=== PATIENT | female | born 1990 | race Caucasian/White ===

== ENCOUNTER 2019-01-19 16:33 | Observation (INO) | payer BC ==
[2019-01-19] MEDS ORDERED: Sodium Chloride 0.9% 1,000 ML IV ONE (17:11)
[2019-01-19] MEDS: cefTRIAXone 1 GM Vial IVPUSH SCH (17:40)
[2019-01-19] MEDS: Sodium Chloride 0.9% 1,000 ML IV SCH (18:45)
[2019-01-19] MEDS: Acetaminophen 325 MG Tab PO PRN ×2 (18:48→23:03)
[2019-01-19] MEDS: Ketorolac 30 MG/ML SDV IVPUSH PRN (19:12)
[2019-01-20] MEDS: Ondansetron 4 MG/2 ML SDV IVPUSH PRN ×2 (00:17→12:32)
[2019-01-20] MEDS: Sodium Chloride 0.9% 1,000 ML IV SCH ×3 (02:29→17:48)
[2019-01-20] MEDS: Ketorolac 30 MG/ML SDV IVPUSH PRN ×2 (02:32→12:36)
[2019-01-20] MEDS: Acetaminophen 325 MG Tab PO PRN ×3 (06:49→20:40)
[2019-01-20 08:00] LABS: ANION GAP 15.2 mmol/L (5-15); CHLORIDE,CL 106 mmol/L (98-115); SODIUM,NA 139 mmol/L (136-145)
[2019-01-20] MEDS ORDERED: Non-Formulary Medication 1 Each (Lisdexamfetamine Dimesylate [Vyvanse] 40 MG) PO SCH (09:00)
--- NOTE | 2019-01-20 11:17 | PCM.PN ---
- General Info Date of Service: 01/20/19 Functional Status: Reports: Tolerating Diet - Review of Systems General: Reports: Weakness, Fatigue, Malaise, Chills HEENT: Reports: Headaches (Patient reports frontal head pain. No sensitivity to light or sound. No associated nausea or vomiting. ) Pulmonary: Reports: No Symptoms Cardiovascular: Reports: No Symptoms Gastrointestinal: Reports: Nausea (intermittent). Denies: Vomiting Genitourinary: Reports: Dysuria, Frequency, Burning, Urgency, Flank Pain. Denies: Pain, Hematuria, Retention Musculoskeletal: Reports: No Symptoms Skin: Reports: No Symptoms Neurological: Reports: No Symptoms Psychiatric: Reports: No Symptoms - Patient Data Vitals - Most Recent: Last Vital Signs Temp 99.4 F 01/20/19 06:51 Pulse 100 01/20/19 06:51 Resp 16 01/20/19 06:51 BP 94/61 01/20/19 06:51 Pulse Ox 97 01/20/19 06:51 Weight - Most Recent: 139 lb 6.4 oz I&O - Last 24 Hours: Intake & Output 01/19/19 01/20/19 01/20/19 22:59 06:59 14:59 Intake Total 400 2510 Output Total 700 600 Balance -300 1910 Lab Results Last 24 Hours: Laboratory Results - last 24 hr 01/20/19 01/20/19 Range/Units 07:30 07:30 WBC 11.83 H (5.00-10.00) 10^3/uL RBC 3.57 L (3.80-5.50) 10^6/uL Hgb 11.8 L (12.0-16.0) g/dL Hct 33.2 L (37.0-47.0) % MCV 93.0 H D (82.0-92.0) fL MCH 33.1 H (27.0-31.0) pg MCHC 35.5 (32.0-36.0) g/dL RDW 11.8 (11.5-14.5) % Plt Count 230 (150-400) 10^3/uL MPV 8.2 (7.4-10.4) fL Immature Gran % (Auto) 0.2 (0.0-5.0) % Neut % (Auto) 77.9 H (50.0-70.0) % Lymph % (Auto) 8.8 L (20.0-40.0) % [place] % (Auto) 12.3 H (2.0-8.0) % Eos % (Auto) 0.6 L (1.0-3.0) % Baso % (Auto) 0.2 (0.0-1.0) % Immature Gran # (Auto) 0.02 (0.00-0.50) 10^3/uL Neut # (Auto) 9.23 H (2.50-7.00) 10^3/uL Lymph # (Auto) 1.04 (1.00-4.00) 10^3/uL [place] # (Auto) 1.45 H (0.10-0.80) 10^3/uL Eos # (Auto) 0.07 L (0.10-0.30) 10^3/uL Baso # (Auto) 0.02 (0.00-0.10) 10^3/uL Sodium 139 (136-145) mmol/L Potassium 4.0 (3.3-5.3) mmol/L Chloride 106 (98-115) mmol/L Carbon Dioxide 21.8 (21.0-32.0) mmol/L Anion Gap 15.2 H (5-15) mmol/L BUN 9 (6-25) mg/dL Creatinine 0.50 L (0.51-1.17) mg/dL Est Cr Clr Drug Dosing 164.35 mL/min Estimated GFR (MDRD) > 60 mL/min Glucose 101 H (75 - 99) mg/dL Calcium 8.4 L (8.7-10.3) mg/dL [place] Results Last 24 Hours: Microbiology 01/19/19 18:20 Anaerobic Blood Culture - Final Blood - Venous Med Orders - Current: Current Medications Acetaminophen (Tylenol) 650 mg PO Q4H PRN PRN Reason: Pain/Fever Last Admin: 01/20/19 06:49 Dose: 650 mg Ceftriaxone Sodium (Rocephin) 1 gm IVPUSH DAILY@1800 BRAN Last Admin: 01/19/19 17:40 Dose: 1 gm Sodium Chloride (Normal Saline) 1,000 mls @ 125 mls/hr IV ASDIRECTED BRAN Last Admin: 01/20/19 02:29 Dose: 125 mls/hr Ketorolac Tromethamine (Toradol) 30 mg IVPUSH Q6H PRN PRN Reason: Pain Stop: 01/24/19 17:16 Last Admin: 01/20/19 02:32 Dose: 30 mg Non-Formulary Medication (Lisdexamfetamine Dimesylate [Vyvanse]) 40 mg PO DAILY BRAN Ondansetron HCl (Zofran) 4 mg IVPUSH Q6H PRN PRN Reason: Nausea/Vomiting Last Admin: 01/20/19 00:17 Dose: 4 mg Discontinued Medications Sodium Chloride (Normal Saline) 1,000 mls @ 999 mls/hr IV BOLUS ONE Stop: 01/19/19 18:11 Last Admin: 01/19/19 17:39 Dose: 999 mls/hr - Exam General: Alert, Oriented HEENT: Pupils Equal, Pupils Reactive, EOMI, Other (mucus membrane and lips dry but improving). No: Mucous Membr. Moist/[place] Neck: Supple Lungs: Clear to Auscultation, Normal Respiratory Effort Cardiovascular: Regular Rate, Regular Rhythm GI/Abdominal Exam: Normal Bowel Sounds, Soft, Other (marked left flank pain. abdominal pain with palpation has improved. ) (Female) Exam: Deferred Back Exam: CVA Tenderness (L) Extremities: Normal Inspection, Normal Range of Motion, Non-Tender, No Pedal Edema, Normal Capillary Refill Skin: Warm, Dry, Intact Neurological: Normal Gait, Normal Speech, Normal Tone, Strength Equal Bilateral , Reflexes Equal Bilateral, Sensation Intact, Cranial Nerves Intact Psy/Mental Status: Alert, Normal Affect, Normal Mood - Problem List & Annotations (1) Pyelonephritis SNOMED Code(s): 38187605 Code(s): N12 - TUBULO-INTERSTITIAL NEPHRITIS, NOT SPCF ACUTE OR CHRONIC Status: Acute (2) Dehydration SNOMED Code(s): 18194994 Code(s): E86.0 - DEHYDRATION Status: Acute - Problem List Review Problem List Initiated/Reviewed/Updated: Yes - My Orders Last 24 Hours: My Active Orders 01/19/19 17:15 Ketorolac [Toradol] 30 mg IVPUSH Q6H PRN Ondansetron [Zofran] 4 mg IVPUSH Q6H PRN 01/19/19 17:30 Sodium Chloride 0.9% [Normal Saline] 1,000 ml IV ASDIRECTED 01/19/19 17:45 CULTURE BLOOD [BC] Routine 01/19/19 18:00 cefTRIAXone [Rocephin] 1 gm IVPUSH DAILY@1800 01/19/19 18:20 CULTURE BLOOD [BC] Routine 01/19/19 18:34 Acetaminophen [Tylenol] 650 mg PO Q4H PRN 01/19/19 19:33 Resuscitation Status Routine 01/20/19 09:00 Lisdexamfetamine Dimesylate [Vyvanse] 40 mg PO DAILY 01/20/19 Breakfast Regular Diet [DIET] - Assessment Assessment:: HPI summary: This is a 28 year old female who was admitted to the hospital 01/20/19 from the [facility] in [place] by myself for acute pyelonephritis and dehydration. Patient had a notable history of urgency, frequency, and discomfort (pinching pain) with urination x3 days followed by the onset of fevers of up to 103, nausea, vomiting, severe left flank pain, and abdominal pain. She reported a decreased appetite with decreased PO fluid intake. Patient notes a history of renal stones during nearly 10 years ago which passed without intervention. Pertinent clinical work-up: - CBC with elevated WBC at 14.8 with a left shift with seg neutrophil count of 12.0 - CMP done with mild hyponatremia. Normal renal function. - Lipase normal - Urinalysis showing Large ketones, moderate blood, protein, positive nitrites, Large leukocytes. Significant pyuria WBC>50, RBC 11-50, Bacteria few. - Urine culture done and pending - Urine hcg negative. Hospitalization course: Patient admitted observation status. BC x2 done and pending. Patient was febrile 101.8 on admit and has been afebrile since, though receiving tylenol for pain/fever. Reports mild improvement in symptoms today. Does complain of a frontal headache today without associated nausea, vomiting, sensitivity to light or sound, or neurological deficit. Receiving IV Toradol PRN. Reports good pain control. Received 4mg IV Zofran during the night. Denies any further nausea. No vomiting. Hospitalization problems #Acute pyelonephritis- CBC done today and improved WBC from 14.8 to 11.83. mild left shift. No indicator of urinary tract obstruction: Renal function normal. Good urinary output. Improving flank pain and associated symptoms. No risk factors for MDR organism. Will continue Rocephin 1gm IV daily. urine culture Pending. Continue IV Toradol PRN for pain and Zofran for nausea. Recheck labs in AM. #Dehydration- Improving. Clinical evidence of mild volume depletion. Continue IV rehydration. Encourage PO intake. Chronic stable conditions: #ADHD- on Vyvanse Hospitalization details: # FEN: NS @ 125ml/hr. Monitor urinary output. Encourage PO fluid intake as tolerated. Regular diet. # Code status: Full # Disposition: Continue observation status. Close patient monitoring with low threshold for CT imaging if change in patient status including new or worsening of symptoms, lack of therapeutic response, and/or change in renal function or urinary output. Re-evaluate on rounds tomorrow.
[2019-01-20] MEDS ORDERED: SUMAtriptan 25 MG Tab PO SCH (15:45)
[2019-01-20] MEDS: cefTRIAXone 1 GM Vial IVPUSH SCH (17:27)
[2019-01-21] MEDS: Ketorolac 30 MG/ML SDV IVPUSH PRN (01:45)
[2019-01-21] MEDS: Acetaminophen 325 MG Tab PO PRN ×2 (01:50→08:45)
[2019-01-21 07:41] LABS: ANION GAP 12.4 mmol/L (5-15); CHLORIDE,CL 106 mmol/L (98-115); SODIUM,NA 140 mmol/L (136-145)
[2019-01-21] MEDS ORDERED: Ketorolac 10 MG Tab PO ONE (09:56)
[2019-01-21] MEDS ORDERED: Ondansetron 4 MG Tab.DIS PO ONE (09:58)
--- NOTE | 2019-01-21 10:55 | CT ---
[id number] CT/CT Abdomen Pelvis WO IV Exam: CT Abdomen Pelvis WO IV Clinical Data: LEFT FLANK PAIN HISTORY OF KIDNEY STONES COMPARISON: NO PREVIOUS SIMILAR EXAM IS AVAILABLE FINDINGS: There is scarring at the lung bases There is moderate left-sided hydronephrosis There is bilateral nephrolithiasis. An obstructing calculus is not seen There are some limitations of the exam without IV contrast The liver and spleen, aorta, adrenals, pancreas, gallbladder show no acute abnormalities The pelvis shows no mass or adenopathy It appears that the appendix has been removed IMPRESSION: BILATERAL NEPHROLITHIASIS APPEARANCE OF MODERATE LEFT-SIDED HYDRONEPHROSIS AN EXTRARENAL PELVIS ALSO COULD RESULT IN THIS APPEARANCE CHANGE IN CALIBER AT LEFT UPJ CONSIDER FOLLOW-UP CT WITH IV CONTRAST AND UROLOGY CONSULTATION Rosalino Vallecillo MD 01/21/19 [id number] Thank you for allowing us to participate in the care of your patient.
[2019-01-21] MEDS ORDERED: Iopamidol 755 Mg/ML 100 ML Bottle IV ONE (11:27)
[2019-01-21] MEDS ORDERED: Sodium Chloride 0.9% 50 ML IV SCH (11:30)
--- NOTE | 2019-01-21 12:46 | CT ---
[id number] CT/CT Abdomen Pelvis W IV EXAM: CT Abdomen Pelvis W IV CLINICAL DATA: LEFT FLANK PAIN KIDNEY STONES COMPARISON: CORRELATION IS MADE WITH THE EARLIER EXAM TODAY FINDINGS: There is a parapelvic cyst or extrarenal pelvis on the left with no definite hydronephrosis There appears to be left-sided UPJ narrowing There is left-sided nephrolithiasis There is a small amount of free fluid in the pelvis likely physiologic There is fullness in the adnexal region bilaterally likely again physiologic The appendix is not well seen It appears that the appendix has been removed The liver and spleen, kidneys, adrenals, pancreas, aorta, and gallbladder otherwise are unremarkable There is small right renal cysts IMPRESSION: BILATERAL PARAPELVIC CYSTS MIMICKING HYDRONEPHROSIS NEPHROLITHIASIS CONSIDER UROLOGY CONSULTATION NO DEFINITE HYDRONEPHROSIS Rosalino Vallecillo MD 01/21/19 [id number] Thank you for allowing us to participate in the care of your patient.
[2019-01-21 15:15] VITALS: BP 100/71; PULSE 85
--- NOTE | 2019-01-21 15:19 | PCM.DCSUM1 ---
Discharge Summary - Hospital Course HPI Initial Comments: Date of admission: 01/19/19 Date of discharge: 01/21/19 Admission diagnoses: Pyelonephritis, Dehydration Discharge diagnoses: Pyelonephritis, Nonobstructing nephrolithiasis, Dehydration Consultations: Urology Hospital course: The patient is a 28 year old female who was admitted to the hospital 01/20/19 from the [facility] in [place] by myself for acute pyelonephritis and dehydration. Patient had a notable history of urgency, frequency, and discomfort (pinching pain) with urination x3 days followed by the onset of fevers of up to 103, nausea, vomiting, severe left flank pain, and abdominal pain. She reported a decreased appetite with decreased PO fluid intake. Initial clinic work-up with a noted elevated WBC at 14.8 with a left shift. UA positive with significant pyuria and noted hematuria. Urine culture showing >100 ,000 E. coli. sensitivity pending. Patient was admitted with acute pyelonephritis and dehydration. Overall hospitalization uneventful. Blood cultures done on arrival showing no growth at discharge. WBC normalized on discharge at 8.9 with normal seg neutrophils. Renal function normal. Patient maintained good urinary output and oral intake. Flank pain improving. Fevers, nausea, and vomiting improved. Patient receive IV fluid replacement, 1g IV Rocephin Q24h. CT of the abdomen and pelvis done prior to discharge due to history of renal stones in the left kidney noted on CT imaging from 2017. Repeat imaging notes 3-4 nonobstructing stones approximately 7mm in size. No hydronephrosis. Consult placed with urology and stones likely persistent stones as noted on previous imaging. Recommend outpatient urology follow-up. She was continued on other medications for chronic medical conditions. Discharge instructions: -Outpatient referral to urology [place] for non-obstructive, persistent kidney stones. Referral placed through [employer]. - Follow-up Tuesday with Joie STARKEY) at the [facility] for recheck. - Start Oral antibiotic tomorrow. Sensitivities returning in the AM. - Increase oral fluid (water) intake. - May take oral Toradol every 6 hours as needed for pain. - May take oral Zofran every 6 hours as needed for nausea. - Hold ibuprofen while on Toradol. May use Tylenol as needed. Follow-up if any increased pain, nausea/vomiting, fevers, worsening urinary symptoms, or decreased urinary output - follow-up if any other concerns arise. - Discharge Data Discharge Date: 01/21/19 Discharge Disposition: Home, Self-Care 01 Condition: Good - Referral to Home Health Primary Care Physician: Joie Lezama PA-C - Discharge Diagnosis/Problem(s) (1) Pyelonephritis SNOMED Code(s): 95932918 ICD Code: N12 - TUBULO-INTERSTITIAL NEPHRITIS, NOT SPCF ACUTE OR CHRONIC Status: Acute (2) Dehydration SNOMED Code(s): 19394612 ICD Code: E86.0 - DEHYDRATION Status: Acute - Patient Instructions Diet: Regular Diet as Tolerated, Drink 8-10+ Glasses/Day, No Alcoholic Beverages Driving: May Drive Today Showering/Bathing: May Shower Notify Provider of: Fever, Increased Pain, Nausea and/or Vomiting Other/Special Instructions: Notify provider of any return of fever, nausea/ vomiting, increased flank (back pain), or return/worsening of urinary symptoms. - Discharge Plan *PRESCRIPTION DRUG MONITORING PROGRAM REVIEWED*: Not Applicable *COPY OF PRESCRIPTION DRUG MONITORING REPORT IN PATIENT AL: Not Applicable Home Medications: Home Meds Ibuprofen [Motrin Ib] 200 mg PO Q6HR PRN 01/19/19 [History] Lisdexamfetamine Dimesylate [Vyvanse] 40 mg PO DAILY 01/19/19 [History] Oxygen Therapy Mode: Room Air Patient Handouts: Kidney Stones - Discharge Summary/Plan Comment DC Time >30 min.: Yes - General Info Date of Service: 01/21/19 Functional Status: Reports: Pain Controlled, Tolerating Diet, Urinating, New Symptoms - Review of Systems General: Denies: Fever, Fatigue, Chills, Appetite HEENT: Reports: No Symptoms Pulmonary: Reports: No Symptoms Cardiovascular: Reports: No Symptoms Gastrointestinal: Reports: Abdominal Pain. Denies: Constipation, Decreased Appetite, Diarrhea, Nausea, Vomiting Genitourinary: Reports: Frequency, Flank Pain (improved left flank pain). Denies: Dysuria, Burning, Pain, Urgency, Hematuria, Retention Musculoskeletal: Reports: No Symptoms Skin: Reports: No Symptoms Neurological: Reports: No Symptoms Psychiatric: Reports: No Symptoms - Patient Data Vitals - Most Recent: Last Vital Signs Temp 98.1 F 01/21/19 11:00 Pulse 80 01/21/19 11:00 Resp 16 01/21/19 11:00 BP 95/65 01/21/19 11:00 Pulse Ox 97 01/21/19 11:00 Orthostatic Blood Pressure [ 105/67 Standing] Orthostatic Blood Pressure [ 106/64 Sitting] Orthostatic Blood Pressure [ 98/64 Supine] Weight - Most Recent: 139 lb 6.4 oz I&O - Last 24 hours: Intake & Output 01/21/19 01/21/19 01/21/19 06:59 14:59 22:59 Intake Total 300 400 Output Total 900 1200 Balance -600 -800 Lab Results - Last 24 hrs: Laboratory Results - last 24 hr 01/21/19 01/21/19 Range/Units 07:11 07:11 WBC 8.19 (5.00-10.00) 10^3/uL RBC 3.45 L (3.80-5.50) 10^6/uL Hgb 11.3 L (12.0-16.0) g/dL Hct 32.2 L (37.0-47.0) % MCV 93.3 H (82.0-92.0) fL MCH 32.8 H (27.0-31.0) pg MCHC 35.1 (32.0-36.0) g/dL RDW 11.8 (11.5-14.5) % Plt Count 222 (150-400) 10^3/uL MPV 8.4 (7.4-10.4) fL Immature Gran % (Auto) 0.1 (0.0-5.0) % Neut % (Auto) 61.2 (50.0-70.0) % Lymph % (Auto) 19.8 L (20.0-40.0) % [place] % (Auto) 15.9 H (2.0-8.0) % Eos % (Auto) 2.6 (1.0-3.0) % Baso % (Auto) 0.4 (0.0-1.0) % Immature Gran # (Auto) 0.01 (0.00-0.50) 10^3/uL Neut # (Auto) 5.02 (2.50-7.00) 10^3/uL Lymph # (Auto) 1.62 (1.00-4.00) 10^3/uL [place] # (Auto) 1.30 H (0.10-0.80) 10^3/uL Eos # (Auto) 0.21 (0.10-0.30) 10^3/uL Baso # (Auto) 0.03 (0.00-0.10) 10^3/uL Sodium 140 (136-145) mmol/L Potassium 3.9 (3.3-5.3) mmol/L Chloride 106 (98-115) mmol/L Carbon Dioxide 25.5 (21.0-32.0) mmol/L Anion Gap 12.4 (5-15) mmol/L BUN 6 (6-25) mg/dL Creatinine 0.58 (0.51-1.17) mg/dL Est Cr Clr Drug Dosing 141.68 mL/min Estimated GFR (MDRD) > 60 mL/min Glucose 91 (75 - 99) mg/dL Calcium 8.6 L (8.7-10.3) mg/dL Total Bilirubin 0.4 (0.2-1.0) mg/dL AST 28 (15-37) U/L ALT 50 (12-78) U/L Alkaline Phosphatase 73 (46-116) IU/L Total Protein 6.2 L (6.4-8.2) g/dL Albumin 2.92 L (3.00-4.80) g/dL [place] Results - Last 24 hrs: Microbiology 01/19/19 18:20 Aerobic Blood Culture - Preliminary Blood - Venous NO GROWTH AFTER 1 DAY Anaerobic Blood Culture - Final 01/19/19 17:45 Aerobic Blood Culture - Preliminary Blood - Venous NO GROWTH AFTER 1 DAY Anaerobic Blood Culture - Preliminary NO GROWTH AFTER 1 DAY Med Orders - Current: Current Medications Acetaminophen (Tylenol) 650 mg PO Q4H PRN PRN Reason: Pain/Fever Last Admin: 01/21/19 08:45 Dose: 650 mg Ceftriaxone Sodium (Rocephin) 1 gm IVPUSH DAILY@1800 BRAN Last Admin: 01/20/19 17:27 Dose: 1 gm Sodium Chloride (Normal Saline) 50 mls @ 200 mls/min IV ASDIRECTED BRAN Last Admin: 01/21/19 12:14 Dose: 200 mls/min Ketorolac Tromethamine (Toradol) 30 mg IVPUSH Q6H PRN PRN Reason: Pain Stop: 01/24/19 17:16 Last Admin: 01/21/19 01:45 Dose: 30 mg Non-Formulary Medication (Lisdexamfetamine Dimesylate [Vyvanse]) 40 mg PO DAILY [facility] Ondansetron HCl (Zofran) 4 mg IVPUSH Q6H PRN PRN Reason: Nausea/Vomiting Last Admin: 01/20/19 12:32 Dose: 4 mg Sumatriptan Succinate (Imitrex) 50 mg PO ONETIME [facility] Last Admin: 01/20/19 15:46 Dose: 50 mg Discontinued Medications Sodium Chloride (Normal Saline) 1,000 mls @ 999 mls/hr IV BOLUS ONE Stop: 01/19/19 18:11 Last Admin: 01/19/19 17:39 Dose: 999 mls/hr Sodium Chloride (Normal Saline) 1,000 mls @ 125 mls/hr IV ASDIRECTED [facility] Last Admin: 01/20/19 17:48 Dose: 125 mls/hr Iopamidol (Isovue-370 (76%)) 100 ml IV ONETIME ONE Stop: 01/21/19 11:28 Last Admin: 01/21/19 12:14 Dose: 75 ml Ketorolac Tromethamine (Toradol) 40 mg PO ONETIME ONE Stop: 01/21/19 09:57 Ondansetron HCl (Zofran Odt) 16 mg PO ONETIME ONE Stop: 01/21/19 09:59 - Exam General: Reports: Alert, Oriented Neck: Reports: Supple Lungs: Reports: Clear to Auscultation, Normal Respiratory Effort Cardiovascular: Reports: Regular Rate, Regular Rhythm GI/Abdominal Exam: Normal Bowel Sounds, Soft, No Organomegaly, No Distention, Tender (Mild abdominal pain with palpation of LLQ) (Female) Exam: Deferred Back Exam: Reports: CVA Tenderness (L) (mild left flank pain, significantly improved.). Denies: CVA Tenderness (R) Skin: Reports: Warm, Dry, Intact Neurological: Reports: No New Focal Deficit Psy/Mental Status: Reports: Alert, Normal Affect, Normal Mood
[2019-01-21] MEDS ORDERED: Fluconazole 100 MG Tab PO ONE (16:03)
[2019-01-21] MEDS: cefTRIAXone 1 GM Vial IVPUSH SCH (16:16)
== END 2019-01-21 16:40 | disposition home or self-care (01) ==
LOC: KA.MS 16:33
PROVIDERS: ADMIT Nurse Practitioner Family; ATTEND Nurse Practitioner Family
DX: N10 Acute pyelonephritis (principal); N20.0 Calculus of kidney; E86.0 Dehydration; F90.9 Attention-deficit hyperactivity disorder, unspecified type; Z79.899 Other long term (current) drug therapy
CPT/HCPCS: 36415; 74176; 74177; 80048; 80053; 85025; 87040; 96361; 96374; 96375; 96376; A9270-GY; G0378; G0379; J0696; J1885; J2405; J7030; J7050; Q9967

== ENCOUNTER 2019-02-05 12:17 | Inpatient (IN) | payer BC ==
[2019-02-05] MEDS ORDERED: Lactated Ringers 1,000 ML IV ONE (14:08)
[2019-02-05] MEDS ORDERED: Lactated Ringers 1,000 ML IV SCH (15:30)
[2019-02-05 16:13] VITALS: PULSE 110
--- NOTE | 2019-02-05 17:08 | CT ---
[id number] CT/CT Chest W IV Exam: CT Chest W IV Clinical Data: ELEVATED D-DIMER COMPARISON: NO PREVIOUS SIMILAR EXAM IS AVAILABLE FINDINGS: There is significant right middle lobe collapse. There is a significant infiltrate involving the anterior and medial basal segments of the right lower lobe There is an infiltrate involving the superior segment of the right lower lobe. There are no pulmonary emboli. The right middle lobe bronchus is occluded. Consider bronchoscopy. There is no obvious mediastinal mass or adenopathy identified separate from the confluent pulmonary parenchymal infiltrates The left lung is clear IMPRESSION: EXTENSIVE RIGHT-SIDED INFILTRATES INVOLVING PRIMARILY THE RIGHT MIDDLE LOBE AND RIGHT LOWER LOBE VOLUME LOSS INVOLVING MIDDLE LOBE CONSIDER BRONCHOSCOPY NO PULMONARY EMBOLI Rosalino Vallecillo MD 02/05/19 [id number] Thank you for allowing us to participate in the care of your patient.
[2019-02-05 17:34] VITALS: BP 112/78
[2019-02-05] MEDS ORDERED: Piperacillin/Tazobactam 4.5 GM in Sodium Chloride 0.9% 100 ML IV SCH (18:00)
[2019-02-05] MEDS ORDERED: Azithromycin 500 MG in Sodium Chloride 0.9% 250 ML IV ONE (18:30)
[2019-02-06] MEDS ORDERED: Non-Formulary Medication 1 Each (Lisdexamfetamine Dimesylate [Vyvanse] 40 MG) PO SCH (09:00)
== END 2019-02-05 19:15 | DRG 139 ==
LOC: KA.MS 13:34 → OBSVTOIN 13:34
PROVIDERS: ADMIT Nurse Practitioner Family; ATTEND Family Medicine
DX: J18.9 Pneumonia, unspecified organism (principal); D64.9 Anemia, unspecified; E28.2 Polycystic ovarian syndrome; Z79.899 Other long term (current) drug therapy; Z87.442 Personal history of urinary calculi; Z90.49 Acquired absence of other specified parts of digestive tract
CPT/HCPCS: 36415; 71260; 81025; 84145; 87040; 87070; 87205; 87899; J0456; J2543; J7050; J7120

== ENCOUNTER 2019-09-08 01:52 | Emergency (ER) | payer BC ==
[2019-09-08] MEDS ORDERED: Sodium Chloride 0.9% 10 ML Syringe FLUSH PRN (02:31)
[2019-09-08] MEDS ORDERED: HYDROmorphone 1 MG/ML Syringe IVPUSH ONE (02:31)
[2019-09-08] MEDS ORDERED: Ondansetron 4 MG/2 ML SDV IVPUSH ONE (02:31)
[2019-09-08 02:40] VITALS: BP 102/71; PULSE 86
--- NOTE | 2019-09-08 02:51 | EDM.PDOC ---
ED HPI GENERAL MEDICAL PROBLEM - General Chief Complaint: General Stated Complaint: chest pain Time Seen by Provider: 09/08/19 02:29 Source of Information: Reports: Patient History Limitations: Reports: No Limitations - History of Present Illness INITIAL COMMENTS - FREE TEXT/NARRATIVE: Patient is a 28-year-old female who presents to the emergency department this morning via private vehicle with a complaint of chest pain. Patient states approximately 1700 yesterday, she developed upper abdominal and lower chest pain caused her to vomit. He did have mild relief after vomiting. Pain is described as constant, and feels like a balloon is blowing up in her chest and lower abdomen. 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 Patient had similar symptoms January 2019. She was found to have pneumonia at that time and was transferred to [facility]. Patient states since then she's been asymptomatic. Patient denies drug use, excessive alcohol abuse, out of area travel, blood in vomitus, bowel changes, suspicion for , or any trauma. Onset: Gradual Duration: Hour(s): Location: Reports: Chest, Abdomen Quality: Reports: Pressure Severity: Moderate Improves with: Reports: None Worsens with: Reports: Breathing Associated Symptoms: Reports: Chest Pain, Nausea/Vomiting. Denies: Cough, Feve r/Chills Treatments INJECTION SPECIALIST: Reports: NSAIDS Epigastric Pain Score (Numeric/FACES): 10 - Related Data Allergies Allergy/AdvReac Type Severity Reaction Status Date / Time No Known Allergies Allergy Verified 09/08/19 02:51 Home Meds: Home Meds Ibuprofen [Motrin Ib] 200 mg PO Q6HR PRN 01/19/19 [History] Lisdexamfetamine Dimesylate [Vyvanse] 40 mg PO DAILY 01/19/19 [History] Past Medical History HEENT History: Reports: Allergic Rhinitis Cardiovascular History: Reports: None Respiratory History: Reports: None Gastrointestinal History: Reports: Chronic Constipation Genitourinary History: Reports: Renal Calculus, Other (See Below) Other Genitourinary History: Right-sided Sided urolithiasis in 2009 with spontaneous passage ACUTE DIALYSIS NURSE History: Reports: Musculoskeletal History: Reports: None Neurological History: Reports: None Psychiatric History: Reports: ADD, ADHD Endocrine/Metabolic History: Reports: None Hematologic History: Reports: Anemia, Iron Deficiency Immunologic History: Reports: None Oncologic (Cancer) History: Reports: None Dermatologic History: Reports: None - Infectious Disease History Infectious Disease History: Reports: None - Past Surgical History Head Surgeries/Procedures: Reports: None HEENT Surgical History: Reports: Oral Surgery, Other (See Below) Other HEENT Surgeries/Procedures: [place] teeth extraction 4 in 2011 Cardiovascular Surgical History: Reports: None Respiratory Surgical History: Reports: None GI Surgical History: Reports: Appendectomy, Hernia, Abdominal, Other (See Below) Other GI Surgeries/Procedures: umbilical hernia repair Female Surgical History: Reports: Other (See Below) Other Female Surgeries/Procedures: IUD placement in about 2009 with periforation - no curren IUD as of 2018 Endocrine Surgical History: Reports: None Neurological Surgical History: Reports: None Musculoskeletal Surgical History: Reports: None Oncologic Surgical History: Reports: None Dermatological Surgical History: Reports: Plastic Surgical Reconstruction/Repair, Other (See Below) - Past Imaging History Past Imaging History: Reports: Ultrasound (Pelvic ultrasound in about 2010) Social & Family History - Family History HEENT: Reports: None Cardiac: Reports: None Respiratory: Reports: None GI: Reports: None : Reports: None OBGYN: Reports: None Musculoskeletal: Reports: None Neurological: Reports: None Psychiatric: Reports: Anxiety, Depression, Other (See Below) Other Psychiatric Family History: Mother with anxiety depression disorder Hematologic: Reports: Anemia, Other (See Below) Other Hematologic Family History: Mother with iron deficiency anemia Immunologic: Reports: None Dermatologic: Reports: Eczema, Seborrheic Dermatitis Other Dermatologic Family History: Brother with eczema and seborrheic dermatitis Oncologic: Reports: None - Caffeine Use Caffeine Use: Reports: Coffee, Energy Drinks, Soda Other Caffeine Use: coffee 2 cups a day - Living Situation & Occupation Living situation: Reports: (2012, 2 children), with Family ( and 2 children) 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 Constitutional: Reports: No Symptoms HEENT: Reports: No Symptoms Respiratory: Reports: Pleuritic Chest Pain Cardiovascular: Reports: Chest Pain Endocrine: Reports: No Symptoms GI/Abdominal: Reports: Abdominal Pain, Nausea, Vomiting : Reports: No Symptoms Musculoskeletal: Reports: No Symptoms Skin: Reports: No Symptoms Neurological: Reports: No Symptoms Psychiatric: Reports: No Symptoms Hematologic/Lymphatic: Reports: No Symptoms Immunologic: Reports: No Symptoms ED EXAM, GENERAL - Physical Exam Exam: See Below Exam Limited By: No Limitations General Appearance: Alert, WD/WN, Moderate Distress Nose: Normal Inspection, Normal Mucosa, No Blood Throat/Mouth: Normal Inspection, Normal Oropharynx, No Airway Compromise Head: Atraumatic, Normocephalic Neck: Normal Inspection, Supple Respiratory/Chest: No Respiratory Distress, Lungs Clear, Normal Breath Sounds, No Accessory Muscle Use Cardiovascular: Regular Rate, Rhythm, No Murmur GI/Abdominal: Normal Bowel Sounds, Soft, No Organomegaly, No Distention, No Abnormal Bruit, No Mass, Tender (Epigastric and right upper quadrant). No: Non- Tender, Distended, Guarding, Rigid, Rebound, Hepatomegaly, Splenomegaly Back Exam: Normal Inspection. No: CVA Tenderness (L), CVA Tenderness (R) Extremities: Normal Inspection, No Pedal Edema Neurological: Alert, Oriented, Normal Cognition Psychiatric: Normal Affect, Normal Mood Skin Exam: Warm, Dry, Intact, Normal Color, No Rash Lymphatic: No Adenopathy EKG INTERPRETATION EKG Date: 09/08/19 Time: 03:30 Rhythm: NSR Rate (Beats/Min): 70 [place]: Normal P-Wave: Present QRS: RBBB ST-T: Normal QT: Normal Comparison: NA - No Prior EKG Course - Vital Signs Last Recorded V/S: Last Vital Signs Temp 96.9 F 09/08/19 02:00 Pulse 86 09/08/19 02:00 Resp 20 09/08/19 02:00 BP 102/71 09/08/19 02:00 Pulse Ox 97 09/08/19 02:00 - Orders/Labs/Meds Orders: Active Orders 24 hr Category Date Time Status Peripheral IV Care [RC] . DIRECTED Care 09/08/19 02:32 Ordered Chest 1V Frontal [CR] Stat Exams 09/08/19 02:29 Ordered Sodium Chloride 0.9% [Saline Flush] Med 09/08/19 02:31 Ordered 10 ml FLUSH Q8HR PRN Peripheral IV Insertion Adult [OM.PC] Routine Oth 09/08/19 02:31 Ordered Medication Orders Sodium Chloride (Saline Flush) 10 ml FLUSH Q8HR PRN PRN Reason: keep vein open Labs: Laboratory Tests 09/08/19 09/08/19 09/08/19 Range/Units 02:30 02:30 02:30 WBC 11.38 H (5.00-10.00) 10^3/uL RBC 4.61 (3.80-5.50) 10^6/uL Hgb 14.3 D (12.0-16.0) g/dL Hct 41.7 (37.0-47.0) % MCV 90.5 (82.0-92.0) fL MCH 31.0 (27.0-31.0) pg MCHC 34.3 (32.0-36.0) g/dL RDW 11.6 (11.5-14.5) % Plt Count 409 H D (150-400) 10^3/uL MPV 8.4 (7.4-10.4) fL Immature Gran % (Auto) 0.1 (0.0-5.0) % Neut % (Auto) 73.9 H (50.0-70.0) % Lymph % (Auto) 16.3 L (20.0-40.0) % [place] % (Auto) 8.2 H (2.0-8.0) % Eos % (Auto) 1.2 (1.0-3.0) % Baso % (Auto) 0.3 (0.0-1.0) % Neut # (Auto) 8.41 H (2.50-7.00) 10^3/uL Lymph # (Auto) 1.86 (1.00-4.00) 10^3/uL [place] # (Auto) 0.93 H (0.10-0.80) 10^3/uL Eos # (Auto) 0.14 (0.10-0.30) 10^3/uL Baso # (Auto) 0.03 (0.00-0.10) 10^3/uL Immature Gran # (Auto) 0.01 (0.00-0.50) 10^3/uL D-Dimer, Quantitative 109 (<400) ng/mL Sodium 147 H (136-145) mmol/L Potassium 3.7 (3.3-5.3) mmol/L Chloride 100 (98-115) mmol/L Carbon Dioxide 28.4 (21.0-32.0) mmol/L Anion Gap 22.3 H (5-15) mmol/L BUN 9 (6-25) mg/dL Creatinine 0.66 (0.51-1.17) mg/dL Est Cr Clr Drug Dosing 123.77 mL/min Estimated GFR (MDRD) > 60 mL/min Glucose 100 H (75 - 99) mg/dL Calcium 9.3 (8.7-10.3) mg/dL Total Bilirubin 2.2 H (0.2-1.0) mg/dL AST 638 H (15-37) U/L ALT 534 H (12-78) U/L Alkaline Phosphatase 115 (46-116) IU/L Troponin I 0.06 (0.00-0.070) ng/mL Total Protein 8.0 (6.4-8.2) g/dL Albumin 4.32 (3.00-4.80) g/dL Lipase 183 (73-393) U/L HCG, Quant < 1 mIU/mL Meds: Medications Generic Name Dose Route Start Last Admin Trade Name Freq PRN Reason Stop Dose Admin Sodium Chloride 10 ml 09/08/19 02:31 Saline Flush FLUSH Q8HR PRN keep vein open Discontinued Medications Generic Name Dose Route Start Last Admin Trade Name Freq PRN Reason Stop Dose Admin Hydromorphone HCl 0.5 mg 09/08/19 02:31 09/08/19 02:46 Dilaudid IVPUSH 09/08/19 02:32 0.5 mg ONETIME ONE Administration Ondansetron HCl 4 mg 09/08/19 02:31 09/08/19 02:40 Zofran IVPUSH 09/08/19 02:32 4 mg ONETIME ONE Administration - Radiology Interpretation Free Text/Narrative:: Chest x-ray shows no acute cardiopulmonary process - Re-Assessments/Exams Free Text/Narrative Re-Assessment/Exam: 09/08/19 03:34 Patient afebrile, vital signs stable, nontoxic appearing, pain completely relieved. Hepatic enzymes elevated from January 2019. No other abnormality noted. Patient will follow-up at clinic on Tuesday. Departure - Departure Time of Disposition: 03:40 Disposition: Home, Self-Care 01 Condition: Good Clinical Impression: Elevated liver enzymes Abdominal pain Qualifiers: Abdominal location: right lower quadrant Qualified Code(s): R10.31 - Right lower quadrant pain - Discharge Information Instructions: Abdominal Pain, Adult, [id number], Liver Function Tests Referrals: Jarocho Schwab [employer] SPECIALIST [Primary Care Provider] - Forms: ED Department Discharge Additional Instructions: Follow-up at [facility] on Tuesday. Return to emergency department sooner symptoms continue or worsen. Sepsis Event Note (ED) - Focused Exam Vital Signs: Vital Signs Temp Pulse Resp BP Pulse Ox 09/08/19 02:00 96.9 F 86 20 102/71 97 - My Orders Last 24 Hours: My Active Orders 09/08/19 02:29 Chest 1V Frontal [CR] Stat 09/08/19 02:31 Sodium Chloride 0.9% [Saline Flush] 10 ml FLUSH Q8HR PRN Peripheral IV Insertion Adult [OM.PC] Routine 09/08/19 02:32 Peripheral IV Care [RC] . DIRECTED - Assessment/Plan Last 24 Hours: My Active Orders 09/08/19 02:29 Chest 1V Frontal [CR] Stat 09/08/19 02:31 Sodium Chloride 0.9% [Saline Flush] 10 ml FLUSH Q8HR PRN Peripheral IV Insertion Adult [OM.PC] Routine 09/08/19 02:32 Peripheral IV Care [RC] . DIRECTED Assessment:: Abdominal pain Plan: Follow-up at clinic
[2019-09-08 03:14] LABS: ANION GAP 22.3 mmol/L (5-15); CHLORIDE,CL 100 mmol/L (98-115); SODIUM,NA 147 mmol/L (136-145)
== END 2019-09-08 03:58 | disposition home or self-care (01) ==
LOC: KA.ED 01:52
DX: R10.31 Right lower quadrant pain (principal); R74.8 Abnormal levels of other serum enzymes; F90.9 Attention-deficit hyperactivity disorder, unspecified type; Z79.899 Other long term (current) drug therapy
CPT/HCPCS: 71045; 80053; 83690; 84484; 84702; 85025; 85379; 93005; 96374; 96375; 99285; J1170; J2405

== ENCOUNTER 2019-09-08 14:52 | Emergency (ER) | payer BC ==
[2019-09-08] MEDS ORDERED: HYDROmorphone 1 MG/ML Syringe IVPUSH ONE ×3 (15:11→16:39)
[2019-09-08] MEDS ORDERED: Ondansetron 4 MG/2 ML SDV IVPUSH ONE ×2 (15:11→16:20)
[2019-09-08] MEDS ORDERED: Sodium Chloride 0.9% 1,000 ML IV ONE (15:11)
[2019-09-08] MEDS ORDERED: Sodium Chloride 0.9% 10 ML Syringe FLUSH PRN (15:11)
--- NOTE | 2019-09-08 15:28 | EDM.PDOC ---
ED HPI GENERAL MEDICAL PROBLEM - General Chief Complaint: Abdominal Pain Stated Complaint: ABD PAIN Time Seen by Provider: 09/08/19 15:10 Source of Information: Reports: Patient History Limitations: Reports: No Limitations - History of Present Illness INITIAL COMMENTS - FREE TEXT/NARRATIVE: Patient is a 28-year-old female who presents to the emergency department this afternoon via private vehicle with complaint of abdominal pain. Patient was seen in this ER earlier this morning for same. Patient was found to have elevated liver enzymes and pain completely resolved following pain medication administration. Patient states that there was no pain until she tried to eat at approximately 1 p.m. today. She had a slice of pizza and shortly thereafter developed intense epigastric pain. Pain was described as sharp and stabbing and continued to get worse. She decided to present to the ER. She also had one episode of nausea and vomiting. Patient denies fever, chest pain, shortness of breath, blood in vomitus, or bowel changes. Onset: Today Location: Reports: Abdomen Quality: Reports: Sharp, Stabbing Severity: Severe Improves with: Reports: None Worsens with: Reports: Eating Associated Symptoms: Reports: Nausea/Vomiting. Denies: Chest Pain, Fever/Chills, Shortness of Breath Right Upper Abdomen Pain Score (Numeric/FACES): 10 - Related Data Allergies Allergy/AdvReac Type Severity Reaction Status Date / Time No Known Allergies Allergy Verified 09/08/19 15:53 Home Meds: Home Meds Ibuprofen [Motrin Ib] 200 mg PO Q6HR PRN 01/19/19 [History] Lisdexamfetamine Dimesylate [Vyvanse] 40 mg PO DAILY 01/19/19 [History] Past Medical History HEENT History: Reports: Allergic Rhinitis Cardiovascular History: Reports: None Other Cardiovascular History: Tachycardia Respiratory History: Reports: None Other Respiratory History: Pneumonia/collapsed lung 2018 Gastrointestinal History: Reports: Chronic Constipation Genitourinary History: Reports: Renal Calculus, Other (See Below) Other Genitourinary History: Right-sided Sided urolithiasis in 2009 with spontaneous passage [employer] History: Reports: Musculoskeletal History: Reports: None Neurological History: Reports: None Psychiatric History: Reports: ADD, ADHD Endocrine/Metabolic History: Reports: None Hematologic History: Reports: Anemia, Iron Deficiency Immunologic History: Reports: None Oncologic (Cancer) History: Reports: None Dermatologic History: Reports: None - Infectious Disease History Infectious Disease History: Reports: None - Past Surgical History Head Surgeries/Procedures: Reports: None HEENT Surgical History: Reports: Oral Surgery, Other (See Below) Other HEENT Surgeries/Procedures: [place] teeth extraction 4 in 2011 Cardiovascular Surgical History: Reports: None Respiratory Surgical History: Reports: None GI Surgical History: Reports: Appendectomy, Hernia, Abdominal, Other (See Below) Other GI Surgeries/Procedures: umbilical hernia repair Female Surgical History: Reports: Other (See Below) Other Female Surgeries/Procedures: IUD placement in about 2009 with periforation - no curren IUD as of 2018 Endocrine Surgical History: Reports: None Neurological Surgical History: Reports: None Musculoskeletal Surgical History: Reports: None Oncologic Surgical History: Reports: None Dermatological Surgical History: Reports: Plastic Surgical Reconstruction/Repair, Other (See Below) - Past Imaging History Past Imaging History: Reports: Ultrasound (Pelvic ultrasound in about 2010) Social & Family History - Family History HEENT: Reports: None Cardiac: Reports: None Respiratory: Reports: None GI: Reports: None : Reports: None OBGYN: Reports: None Musculoskeletal: Reports: None Neurological: Reports: None Psychiatric: Reports: Anxiety, Depression, Other (See Below) Other Psychiatric Family History: Mother with anxiety depression disorder Hematologic: Reports: Anemia, Other (See Below) Other Hematologic Family History: Mother with iron deficiency anemia Immunologic: Reports: None Dermatologic: Reports: Eczema, Seborrheic Dermatitis Other Dermatologic Family History: Brother with eczema and seborrheic dermatitis Oncologic: Reports: None - Caffeine Use Caffeine Use: Reports: Coffee, Energy Drinks, Soda Other Caffeine Use: coffee 2 cups a day - Living Situation & Occupation Living situation: Reports: (2012, 2 children), with Family ( and 2 children) 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 Constitutional: Reports: No Symptoms HEENT: Reports: No Symptoms Respiratory: Reports: No Symptoms Cardiovascular: Reports: No Symptoms Endocrine: Reports: No Symptoms GI/Abdominal: Reports: Abdominal Pain, Nausea, Vomiting : Reports: No Symptoms Musculoskeletal: Reports: No Symptoms Skin: Reports: No Symptoms Neurological: Reports: No Symptoms Psychiatric: Reports: No Symptoms Hematologic/Lymphatic: Reports: No Symptoms Immunologic: Reports: No Symptoms ED EXAM, GI/ABD - Physical Exam Exam: See Below Exam Limited By: No Limitations General Appearance: Alert, WD/WN, Moderate Distress Throat/Mouth: Normal Inspection, Normal Oropharynx, No Airway Compromise Head: Atraumatic, Normocephalic Neck: Normal Inspection Respiratory/Chest: No Respiratory Distress, Lungs Clear, Normal Breath Sounds, No Accessory Muscle Use, Chest Non-Tender Cardiovascular: Regular Rate, Rhythm, No Murmur GI/Abdominal Exam: Normal Bowel Sounds, Soft, No Distention, No Abnormal Bruit, No Mass, Guarding, Tender (Gastric and right upper quadrant), Hepatomegaly. No: Non-Tender, Distended, Rigid, Rebound, Splenomegaly Back Exam: Normal Inspection. No: CVA Tenderness (L), CVA Tenderness (R) Extremities: Normal Inspection, No Pedal Edema Neurological: Alert, Oriented, Normal Cognition Psychiatric: Normal Affect, Normal Mood Skin Exam: Warm, Dry, Intact, Normal Color, No Rash Course - Vital Signs Last Recorded V/S: Last Vital Signs Temp 97.2 F 09/08/19 15:00 Pulse 73 09/08/19 15:00 Resp 20 09/08/19 15:00 BP 102/69 09/08/19 15:00 Pulse Ox 97 09/08/19 15:00 - Orders/Labs/Meds Orders: Active Orders 24 hr Category Date Time Status Peripheral IV Care [RC] . DIRECTED Care 09/08/19 15:11 Active Abdomen Pelvis w Cont [CT] Stat Exams 09/08/19 15:11 Ordered URINALYSIS W/MICROSCOPIC [UA W/MICROSCOPIC] [URIN] Stat Lab 09/08/19 15:45 Ordered Sodium Chloride 0.9% [Normal Saline] 50 ml Med 09/08/19 15:45 Active IV ASDIRECTED Sodium Chloride 0.9% [Saline Flush] Med 09/08/19 15:11 Ordered 10 ml FLUSH Q8HR PRN Peripheral IV Insertion Adult [OM.PC] Routine Oth 09/08/19 15:11 Ordered Medication Orders Sodium Chloride (Normal Saline) 50 mls @ 200 mls/min IV ASDIRECTED BRAN Last Admin: 09/08/19 16:12 Dose: 200 mls/min Documented by: CLARENCE Sodium Chloride (Saline Flush) 10 ml FLUSH Q8HR PRN PRN Reason: keep vein open Last Admin: 09/08/19 15:27 Dose: 10 ml Documented by: ALY Labs: Laboratory Tests 09/08/19 09/08/19 Range/Units 15:15 15:15 WBC 7.90 (5.00-10.00) 10^3/uL RBC 4.41 (3.80-5.50) 10^6/uL Hgb 14.0 (12.0-16.0) g/dL Hct 39.4 (37.0-47.0) % MCV 89.3 (82.0-92.0) fL MCH 31.7 H (27.0-31.0) pg MCHC 35.5 (32.0-36.0) g/dL RDW 11.7 (11.5-14.5) % Plt Count 441 H (150-400) 10^3/uL MPV 8.4 (7.4-10.4) fL Immature Gran % (Auto) 0.1 (0.0-5.0) % Neut % (Auto) 60.1 (50.0-70.0) % Lymph % (Auto) 27.6 (20.0-40.0) % [place] % (Auto) 9.9 H (2.0-8.0) % Eos % (Auto) 1.8 (1.0-3.0) % Baso % (Auto) 0.5 (0.0-1.0) % Neut # (Auto) 4.75 (2.50-7.00) 10^3/uL Lymph # (Auto) 2.18 (1.00-4.00) 10^3/uL [place] # (Auto) 0.78 (0.10-0.80) 10^3/uL Eos # (Auto) 0.14 (0.10-0.30) 10^3/uL Baso # (Auto) 0.04 (0.00-0.10) 10^3/uL Immature Gran # (Auto) 0.01 (0.00-0.50) 10^3/uL Sodium 137 D (136-145) mmol/L Potassium 3.8 (3.3-5.3) mmol/L Chloride 102 (98-115) mmol/L Carbon Dioxide 23.1 (21.0-32.0) mmol/L Anion Gap 15.7 H (5-15) mmol/L BUN 9 (6-25) mg/dL Creatinine 0.62 (0.51-1.17) mg/dL Est Cr Clr Drug Dosing 131.76 mL/min Estimated GFR (MDRD) > 60 mL/min Glucose 97 (75 - 99) mg/dL Calcium 9.3 (8.7-10.3) mg/dL Total Bilirubin 5.0 H (0.2-1.0) mg/dL AST 876 H (15-37) U/L ALT 959 H (12-78) U/L Alkaline Phosphatase 142 H (46-116) IU/L Total Protein 7.7 (6.4-8.2) g/dL Albumin 4.19 (3.00-4.80) g/dL Meds: Medications Generic Name Dose Route Start Last Admin Trade Name Frejonh PRN Reason Stop Dose Admin Sodium Chloride 50 mls @ 200 mls/min 09/08/19 15:45 09/08/19 16:12 Normal Saline IV 200 mls/min ASDIRECTED BRAN Administration Sodium Chloride 10 ml 09/08/19 15:11 09/08/19 15:27 Saline Flush FLUSH 10 ml Q8HR PRN Administration keep vein open Discontinued Medications Generic Name Dose Route Start Last Admin Trade Name Freq PRN Reason Stop Dose Admin Hydromorphone HCl 1 mg 09/08/19 15:11 09/08/19 15:19 Dilaudid IVPUSH 09/08/19 15:12 1 mg ONETIME ONE Administration Hydromorphone HCl 0.5 mg 09/08/19 16:11 Dilaudid IVPUSH 09/08/19 16:12 ONETIME ONE Sodium Chloride 1,000 mls @ 999 mls/hr 09/08/19 15:11 09/08/19 15:23 Normal Saline IV 09/08/19 16:11 999 mls/hr .BOLUS ONE Administration Iopamidol 100 ml 09/08/19 15:44 09/08/19 16:12 Isovue-370 (76%) IV 09/08/19 15:45 75 ml ONETIME ONE Administration Ondansetron HCl 4 mg 09/08/19 15:11 09/08/19 15:22 Zofran IVPUSH 09/08/19 15:12 4 mg ONETIME ONE Administration - Radiology Interpretation Free Text/Narrative:: CT abdomen and pelvis with contrast shows cholecystitis . - Re-Assessments/Exams Free Text/Narrative Re-Assessment/Exam: 09/08/19 16:47 Patient afebrile, nontoxic appearing, pain controlled. Discussed case with Dr.Zreik Gen. surgery at [facility]. He will accept transfer of patient. Patient will be transferred via ground ambulance. Departure - Departure Time of Disposition: 16:49 Disposition: DC/[facility]fer to [facility] 02 Condition: Fair Clinical Impression: Cholecystitis, Elevated liver enzymes - Discharge Information Referrals: Jarocho Schwab NP [Primary Care Provider] - Forms: ED Department Discharge Sepsis Event Note (ED) - Focused Exam Vital Signs: Vital Signs Temp Pulse Resp BP Pulse Ox 09/08/19 15:00 97.2 F 73 20 102/69 97 - My Orders Last 24 Hours: My Active Orders 09/08/19 15:11 Peripheral IV Care [RC] . DIRECTED Abdomen Pelvis w Cont [CT] Stat Sodium Chloride 0.9% [Saline Flush] 10 ml FLUSH Q8HR PRN Peripheral IV Insertion Adult [OM.PC] Routine 09/08/19 15:45 URINALYSIS W/MICROSCOPIC [UA W/MICROSCOPIC] [URIN] Stat Sodium Chloride 0.9% [Normal Saline] 50 ml IV ASDIRECTED - Assessment/Plan Last 24 Hours: My Active Orders 09/08/19 15:11 Peripheral IV Care [RC] . DIRECTED Abdomen Pelvis w Cont [CT] Stat Sodium Chloride 0.9% [Saline Flush] 10 ml FLUSH Q8HR PRN Peripheral IV Insertion Adult [OM.PC] Routine 09/08/19 15:45 URINALYSIS W/MICROSCOPIC [UA W/MICROSCOPIC] [URIN] Stat Sodium Chloride 0.9% [Normal Saline] 50 ml IV ASDIRECTED Assessment:: Cholecystitis Plan: Transferred to [facility]
[2019-09-08] MEDS ORDERED: Iopamidol 755 Mg/ML 100 ML Bottle IV ONE (15:44)
[2019-09-08] MEDS ORDERED: Sodium Chloride 0.9% 50 ML IV SCH (15:45)
[2019-09-08 16:10] LABS: ANION GAP 15.7 mmol/L (5-15); CHLORIDE,CL 102 mmol/L (98-115); SODIUM,NA 137 mmol/L (136-145)
[2019-09-08 17:00] VITALS: BP 106/66; PULSE 76
[2019-09-08] MEDS ORDERED: Sodium Chloride 0.9% 1,000 ML IV SCH (17:15)
[2019-09-08] MEDS ORDERED: Metoclopramide 10 MG/2 ML SDV IVPUSH ONE (17:41)
== END 2019-09-08 17:50 ==
LOC: KA.ED 14:52
DX: K81.9 Cholecystitis, unspecified (principal); R74.8 Abnormal levels of other serum enzymes; F90.9 Attention-deficit hyperactivity disorder, unspecified type; Z79.899 Other long term (current) drug therapy
CPT/HCPCS: 36415; 74177; 80053; 85025; 96361; 96374; 96375; 96376; 99285; J1170; J2405; J2765; J7030; J7050; Q9967

== ENCOUNTER 2019-11-09 23:40 | Inpatient (IN) | payer BC, OTHER ==
[2019-11-10] MEDS ORDERED: Ondansetron 4 MG/2 ML SDV ONE (00:01)
[2019-11-10] MEDS ORDERED: Ondansetron 4 MG/2 ML SDV IVPUSH ONE ×2 (00:05→18:21)
[2019-11-10] MEDS: Sodium Chloride 0.9% 10 ML Syringe FLUSH PRN (00:07)
[2019-11-10] MEDS ORDERED: HYDROmorphone 1 MG/ML Syringe IVPUSH ONE ×3 (00:09→18:22)
[2019-11-10] MEDS ORDERED: Ondansetron 4 MG Tab.DIS PO PRN (00:33)
--- NOTE | 2019-11-10 01:02 | EDM.PDOC ---
ED HPI GENERAL MEDICAL PROBLEM - General Chief Complaint: General Stated Complaint: back pain, chest pain, n/v, recent ERCP Time Seen by Provider: 11/09/19 23:54 Source of Information: Reports: Patient History Limitations: Reports: No Limitations - History of Present Illness INITIAL COMMENTS - FREE TEXT/NARRATIVE: presents with a friend to the ER for post operative vomiting and severe epigastric abd pain. Started at 1700 when she woke up, she was done and d/c from her ERCP procedure at 1100 am. She notes having small emesis and significant amount of nausea. She has not taken anything for the pain or nausea. Hx of pancreatitis and cholecystitis. She had her gallbladder out in September. She had a ERCP a while back with stent placed in her common bile duct. She went into the [facility] on in the early am for repeat ERCP to have the stent removed. The stent had migrated out, and the common bile duct had some stenosis and deformation per surgical report. The dilatated the common bile duct, and placed in another stent, took biopsies, and will have her return in 4 weeks for stent removal and repeat ERCP. No complications during the procedure. Currently her pain is 10/10 on arrival and very uncomfortable in the bed. Abdomen Pain Score (Numeric/FACES): 10 - Related Data Allergies Allergy/AdvReac Type Severity Reaction Status Date / Time No Known Allergies Allergy Verified 11/10/19 00:05 Home Meds: Home Meds Ibuprofen [Motrin Ib] 200 mg PO Q6HR PRN 01/19/19 [History] Lisdexamfetamine Dimesylate [Vyvanse] 40 mg PO DAILY 01/19/19 [History] Acetaminophen/HYDROcodone [Kellogg 325-5 MG] 1 tab PO Q6H PRN #6 tablet 11/10/19 [Rx] Ondansetron [Zofran ODT] 4 mg PO Q6H PRN #10 tab.dis 11/10/19 [Rx] Past Medical History HEENT History: Reports: Allergic Rhinitis Cardiovascular History: Reports: None Other Cardiovascular History: Tachycardia Respiratory History: Reports: Pneumothorax Other Respiratory History: Pneumonia/collapsed lung 2018 Gastrointestinal History: Reports: Chronic Constipation Genitourinary History: Reports: Renal Calculus, Other (See Below) Other Genitourinary History: Right-sided Sided urolithiasis in 2010 with spontaneous passage FLOOR SPECIALIST History: Reports: Musculoskeletal History: Reports: None Neurological History: Reports: None Psychiatric History: Reports: ADD, ADHD Endocrine/Metabolic History: Reports: None Hematologic History: Reports: Anemia, Iron Deficiency Immunologic History: Reports: None Oncologic (Cancer) History: Reports: None Dermatologic History: Reports: None - Infectious Disease History Infectious Disease History: Reports: Chicken Pox - Past Surgical History Head Surgeries/Procedures: Reports: None HEENT Surgical History: Reports: Oral Surgery, Other (See Below) Other HEENT Surgeries/Procedures: [place] teeth extraction 4 in 2011 Cardiovascular Surgical History: Reports: None Respiratory Surgical History: Reports: None GI Surgical History: Reports: Appendectomy, Cholecystectomy, ERCP, Hernia, Abdominal, Other (See Below) Other GI Surgeries/Procedures: umbilical hernia repair, pancreatic stent placement Female Surgical History: Reports: Other (See Below) Other Female Surgeries/Procedures: IUD placement in about 2009 with periforation Endocrine Surgical History: Reports: None Neurological Surgical History: Reports: None Musculoskeletal Surgical History: Reports: None Oncologic Surgical History: Reports: None Dermatological Surgical History: Reports: Plastic Surgical Reconstruction/Repair - Past Imaging History Past Imaging History: Reports: Ultrasound (Pelvic ultrasound in about 2010) Social & Family History - Family History HEENT: Reports: None Cardiac: Reports: None Respiratory: Reports: None GI: Reports: None : Reports: None OBGYN: Reports: None Musculoskeletal: Reports: None Neurological: Reports: None Psychiatric: Reports: Anxiety, Depression, Other (See Below) Other Psychiatric Family History: Mother with anxiety depression disorder Hematologic: Reports: Anemia, Other (See Below) Other Hematologic Family History: Mother with iron deficiency anemia Immunologic: Reports: None Dermatologic: Reports: Eczema, Seborrheic Dermatitis Other Dermatologic Family History: Brother with eczema and seborrheic dermatitis Oncologic: Reports: None - Tobacco Use Smoking Status *Q: Never Smoker - Caffeine Use Caffeine Use: Reports: Coffee Other Caffeine Use: coffee 2 cups a day - Recreational Drug Use Recreational Drug Use: Yes - Living Situation & Occupation Living situation: Reports: (2012, 2 children), with Family ( and 2 children) 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 Denies: Fever, Chills, Weakness HEENT: Reports: No Symptoms Respiratory: Reports: No Symptoms. Denies: Shortness of Breath, Wheezing, Pleuritic Chest Pain Cardiovascular: Reports: No Symptoms. Denies: Chest Pain GI/Abdominal: Reports: Abdominal Pain, Nausea, Vomiting Skin: Reports: No Symptoms Neurological: Reports: No Symptoms ED EXAM, GENERAL - Physical Exam Exam: See Below Exam Limited By: No Limitations General Appearance: Alert, WD/WN, Mild Distress Head: Atraumatic, Normocephalic Neck: Normal Inspection Respiratory/Chest: No Respiratory Distress, Lungs Clear Cardiovascular: Normal Peripheral Pulses, Regular Rate, Rhythm GI/Abdominal: Soft (decreased bowel sounds), Tender, Other (epigastric tenderness). No: Distended, Guarding, Rigid, Rebound, Mass Extremities: Non-Tender. No: Luciano's Sign, Leg Pain Neurological: Alert, Oriented Psychiatric: Anxious Skin Exam: Warm, Dry, Intact Course - Vital Signs Last Recorded V/S: Last Vital Signs Temp 97.5 F 11/10/19 02:23 Pulse 65 11/10/19 02:44 Resp 15 11/10/19 02:44 BP 110/70 11/10/19 02:44 Pulse Ox 100 11/10/19 02:44 - Orders/Labs/Meds Orders: Active Orders 24 hr Category Date Time Status Peripheral IV Care [RC] . DIRECTED Care 11/10/19 00:23 Active NPO Now [Nothing per Oral Now Diet] [DIET] Diet 11/10/19 Breakfast Ordered Abdomen Pelvis w Cont [CT] Stat Exams 11/10/19 02:08 Ordered CBC W/O DIFF,HEMOGRAM [HEME] Stat Lab 11/10/19 06:11 Ordered LACTIC ACID [CHEM] Stat Lab 11/10/19 05:11 Ordered Ondansetron [Zofran ODT] Med 11/10/19 00:33 Active 8 mg PO Q6H PRN Sodium Chloride 0.9% @ 999 MLS/HR (1000ml) Med 11/10/19 03:20 Ordered Sodium Chloride 0.9% [Normal Saline] 1,000 ml IV .BOLUS Sodium Chloride 0.9% [Normal Saline] 1,000 ml Med 11/10/19 03:30 Ordered IV ASDIRECTED Sodium Chloride 0.9% [Saline Flush] Med 11/10/19 00:23 Active 10 ml FLUSH Q8HR PRN Peripheral IV Insertion Adult [OM.PC] Routine Oth 11/10/19 00:23 Ordered Medication Orders Sodium Chloride (Normal Saline) 1,000 mls @ 999 mls/hr IV .BOLUS ONE Stop: 11/10/19 04:20 Sodium Chloride (Normal Saline) 1,000 mls @ 250 mls/hr IV ASDIRECTED [facility] Ondansetron HCl (Zofran Odt) 8 mg PO Q6H PRN PRN Reason: Nausea/Vomiting Last Admin: 11/10/19 01:10 Dose: 8 mg Documented by: ALY Sodium Chloride (Saline Flush) 10 ml FLUSH Q8HR PRN PRN Reason: keep vein open Last Admin: 11/10/19 00:07 Dose: 10 ml Documented by: EDEL Labs: Laboratory Tests 11/10/19 11/10/19 11/10/19 Range/Units 00:05 00:05 00:05 WBC 23.68 H D (5.00-10.00) 10^3/uL RBC 4.52 (3.80-5.50) 10^6/uL Hgb 14.3 (12.0-16.0) g/dL Hct 40.3 (37.0-47.0) % MCV 89.2 (82.0-92.0) fL MCH 31.6 H (27.0-31.0) pg MCHC 35.5 (32.0-36.0) g/dL RDW 11.7 (11.5-14.5) % Plt Count 446 H (150-400) 10^3/uL MPV 9.1 (7.4-10.4) fL Sodium 141 (136-145) mmol/L Potassium 4.0 (3.3-5.3) mmol/L Chloride 101 (98-115) mmol/L Carbon Dioxide 24.8 (21.0-32.0) mmol/L Anion Gap 19.2 H (5-15) mmol/L BUN 9 (6-25) mg/dL Creatinine 0.56 (0.51-1.17) mg/dL Est Cr Clr Drug Dosing 145.44 mL/min Estimated GFR (MDRD) > 60 mL/min Glucose 124 H (75 - 99) mg/dL Lactic Acid 2.5 H (0.4-2.0) mmol/L Calcium 8.9 (8.7-10.3) mg/dL Total Bilirubin (0.2-1.0) mg/dL Direct Bilirubin (0.0-0.2) mg/dL Indirect Bilirubin mg/dL AST (15-37) U/L ALT (12-78) U/L Alkaline Phosphatase (46-116) IU/L Total Protein (6.4-8.2) g/dL Albumin (3.00-4.80) g/dL Globulin Albumin/Globulin Ratio Lipase (73-393) U/L 11/10/19 Range/Units 00:05 WBC (5.00-10.00) 10^3/uL RBC (3.80-5.50) 10^6/uL Hgb (12.0-16.0) g/dL Hct (37.0-47.0) % MCV (82.0-92.0) fL MCH (27.0-31.0) pg MCHC (32.0-36.0) g/dL RDW (11.5-14.5) % Plt Count (150-400) 10^3/uL MPV (7.4-10.4) fL Sodium (136-145) mmol/L Potassium (3.3-5.3) mmol/L Chloride (98-115) mmol/L Carbon Dioxide (21.0-32.0) mmol/L Anion Gap (5-15) mmol/L BUN (6-25) mg/dL Creatinine (0.51-1.17) mg/dL Est Cr Clr Drug Dosing mL/min Estimated GFR (MDRD) mL/min Glucose (75 - 99) mg/dL Lactic Acid (0.4-2.0) mmol/L Calcium (8.7-10.3) mg/dL Total Bilirubin 1.0 (0.2-1.0) mg/dL Direct Bilirubin 0.1 (0.0-0.2) mg/dL Indirect Bilirubin 0.9 mg/dL AST 17 (15-37) U/L ALT 24 (12-78) U/L Alkaline Phosphatase 59 (46-116) IU/L Total Protein 7.3 (6.4-8.2) g/dL Albumin 4.11 (3.00-4.80) g/dL Globulin 3.19 Albumin/Globulin Ratio 1.28 Lipase 66724 H (73-393) U/L Meds: Medications Generic Name Dose Route Start Last Admin Trade Name Savanna PRN Reason Stop Dose Admin Sodium Chloride 1,000 mls @ 999 mls/hr 11/10/19 03:20 Normal Saline IV 11/10/19 04:20 .BOLUS ONE Sodium Chloride 1,000 mls @ 250 mls/hr 11/10/19 03:30 Normal Saline IV ASDIRECTED [facility] Ondansetron HCl 8 mg 11/10/19 00:33 11/10/19 01:10 Zofran Odt PO 8 mg Q6H PRN Administration Nausea/Vomiting Sodium Chloride 10 ml 11/10/19 00:23 11/10/19 00:07 Saline Flush FLUSH 10 ml Q8HR PRN Administration keep vein open Discontinued Medications Generic Name Dose Route Start Last Admin Trade Name Savanna PRN Reason Stop Dose Admin Hydromorphone HCl 1 mg 11/10/19 00:09 11/10/19 00:11 Dilaudid IVPUSH 11/10/19 00:10 0.5 mg ONETIME ONE Administration Hydromorphone HCl 0.5 mg 11/10/19 02:13 11/10/19 02:18 Dilaudid IVPUSH 11/10/19 02:14 0.5 mg ONETIME ONE Administration Sodium Chloride 1,000 mls @ 999 mls/hr 11/10/19 01:41 11/10/19 01:45 Normal Saline IV 11/10/19 02:41 999 mls/hr .BOLUS ONE Administration Sodium Chloride Confirm 11/10/19 01:40 11/10/19 01:44 Normal Saline Administered 11/10/19 01:41 Not Given Dose 1,000 mls @ as directed .ROUTE .STK-MED ONE Ondansetron HCl Confirm 11/10/19 00:01 11/10/19 00:07 Zofran Administered 11/10/19 00:02 Not Given Dose 4 mg .ROUTE .STK-MED ONE Ondansetron HCl 4 mg 11/10/19 00:05 11/10/19 00:07 Zofran IVPUSH 11/10/19 00:06 4 mg ONETIME ONE Administration - Re-Assessments/Exams Free Text/Narrative Re-Assessment/Exam: 11/10/19 00:55 0.5 mg of dilaudid and 4 mg zofran given for post op pain, patient resting in bed, VSS. dx differentials: I did consider PE, due to her pain and post op condition, sp 02 98%, no tachycardia, no SOB, No CP, epigastric pain worse on palpation. 11/10/19 01:08 I did consult annette DANIELS MD cannoneer, review case, he suggested adding LFT's lipase lactic. I did start fluids, her pain is starting to come back to severe. We do not have access to US, CT scan to check for post operative complications such perforation or if stent moved. 11/10/19 02:00 Due to pain, post operative state, rolling around in bed, BP is normal, no low MAPs, no tachycardia, no fever. Pain is epigastric, radiates around her right side to her back. extremely elevated lipase 19,780, leukocytosis of 23,000. elevated lactic and anion gap. 11/10/19 02:36 patient comfortable, no pain now after second dose of dilaudid, VSS, no signs of sepsis, ct report pending. 11/10/19 02:52 acute pancreatitis, spoke with cannoneer BLAYNE Walsh due to the recent ERCP, admit to medical floor here, npo, fluids, and treat pain, spoke with cannoneer Brittany [employer], accepted care, pt transferred to the floor. stable condition, no pain. 11/10/19 03:22 Departure - Departure Time of Disposition: 03:22 Disposition: Admitted As Inpatient 67 Condition: Good, Fair Clinical Impression: Post-ERCP acute pancreatitis - Discharge Information *PRESCRIPTION DRUG MONITORING PROGRAM REVIEWED*: Yes *COPY OF PRESCRIPTION DRUG MONITORING REPORT IN PATIENT AL: No Prescriptions: Acetaminophen/HYDROcodone [Kellogg 325-5 MG] 1 tab PO Q6H PRN #6 tablet PRN Reason: Abdominal Pain Ondansetron [Zofran ODT] 4 mg PO Q6H PRN #10 tab.dis PRN Reason: Nausea/Vomiting Additional Instructions: follow up with Joie this week to ensure things are improving. ensure you f/u with GI Dr. Ford at [place] for scheduled appointment, they will contact you with the date and time. Sepsis Event Note (ED) - Evaluation Sepsis Screening Result: No Definite Risk - Focused Exam Vital Signs: Vital Signs Temp Pulse Resp BP Pulse Ox 11/10/19 02:44 65 15 110/70 100 11/10/19 02:23 97.5 F 87 20 103/74 100 11/10/19 01:17 68 19 119/83 98 11/10/19 00:48 61 18 117/81 97 11/10/19 00:26 52 L 14 109/82 97 11/10/19 00:00 97.3 F 74 20 113/77 100 - My Orders Last 24 Hours: My Active Orders 11/10/19 00:23 Peripheral IV Care [RC] . DIRECTED Sodium Chloride 0.9% [Saline Flush] 10 ml FLUSH Q8HR PRN Peripheral IV Insertion Adult [OM.PC] Routine 11/10/19 00:33 Ondansetron [Zofran ODT] 8 mg PO Q6H PRN 11/10/19 02:08 Abdomen Pelvis w Cont [CT] Stat 11/10/19 03:20 Sodium Chloride 0.9% @ 999 MLS/HR (1000ml) Sodium Chloride 0.9% [Normal Saline] 1,000 ml IV .BOLUS 11/10/19 03:30 Sodium Chloride 0.9% [Normal Saline] 1,000 ml IV ASDIRECTED 11/10/19 05:11 LACTIC ACID [CHEM] Stat 11/10/19 06:11 CBC W/O DIFF,HEMOGRAM [HEME] Stat 11/10/19 Breakfast NPO Now [Nothing per Oral Now Diet] [DIET] - Assessment/Plan Last 24 Hours: My Active Orders 11/10/19 00:23 Peripheral IV Care [RC] . DIRECTED Sodium Chloride 0.9% [Saline Flush] 10 ml FLUSH Q8HR PRN Peripheral IV Insertion Adult [OM.PC] Routine 11/10/19 00:33 Ondansetron [Zofran ODT] 8 mg PO Q6H PRN 11/10/19 02:08 Abdomen Pelvis w Cont [CT] Stat 11/10/19 03:20 Sodium Chloride 0.9% @ 999 MLS/HR (1000ml) Sodium Chloride 0.9% [Normal Saline] 1,000 ml IV .BOLUS 11/10/19 03:30 Sodium Chloride 0.9% [Normal Saline] 1,000 ml IV ASDIRECTED 11/10/19 05:11 LACTIC ACID [CHEM] Stat 11/10/19 06:11 CBC W/O DIFF,HEMOGRAM [HEME] Stat 11/10/19 Breakfast NPO Now [Nothing per Oral Now Diet] [DIET]
[2019-11-10 01:22] LABS: ANION GAP 19.2 mmol/L (5-15); CHLORIDE,CL 101 mmol/L (98-115); SODIUM,NA 141 mmol/L (136-145)
[2019-11-10] MEDS ORDERED: Sodium Chloride 0.9% 1,000 ML ONE (01:40)
[2019-11-10] MEDS ORDERED: Sodium Chloride 0.9% 1,000 ML IV ONE ×2 (01:41→03:20)
[2019-11-10] MEDS: HYDROmorphone 1 MG/ML Syringe IVPUSH PRN ×9 (04:21→22:08)
[2019-11-10] MEDS: Ondansetron 4 MG/2 ML SDV IVPUSH PRN ×2 (05:07→17:26)
[2019-11-10] MEDS: Sodium Chloride 0.9% 1,000 ML IV SCH ×4 (05:18→20:18)
[2019-11-10] MEDS: Ciprofloxacin in D5W 400 MG in Premix Bag 1 BAG IV SCH ×4 (05:19→17:29)
[2019-11-10] MEDS ORDERED: Ciprofloxacin in D5W 400 MG in Premix Bag 1 BAG IV SCH ×2 (06:00)
[2019-11-10 07:33] LABS: ANION GAP 13.3 mmol/L (5-15); CHLORIDE,CL 106 mmol/L (98-115); SODIUM,NA 140 mmol/L (136-145)
--- NOTE | 2019-11-10 09:13 | CT ---
[id number] CT/CT Abdomen Pelvis W IV EXAM: CT Abdomen Pelvis W IV CLINICAL DATA: ABDOMINAL PAIN COMPARISON: CORRELATION IS MADE WITH SEPTEMBER 08, 2019 FINDINGS: A common duct stent is seen There is intrahepatic biliary air. There is evidence of significant pancreatitis There is narrowing of the left ureteropelvic junction There is moderate left-sided hydronephrosis There is a small upper pole right renal cyst The gallbladder has been removed There is free fluid in the pelvis The liver and spleen, aorta, and adrenals otherwise are unremarkable The mesenteric vessels are patent The appendix also may have been removed The uterus is prominent. IMPRESSION: PANCREATITIS COMMON DUCT STENT IN PLACE FREE FLUID IN PELVIS Rosalino Vallecillo MD 11/10/19 0973 Thank you for allowing us to participate in the care of your patient.
--- NOTE | 2019-11-10 10:35 | PCM.HP.2 ---
H&P History of Present Illness - General Date of Service: 11/10/19 Admit Problem/Dx: Admission Diagnosis/Problem Admission Diagnosis/Problem Pancreatitis Source of Information: Patient History Limitations: Reports: No Limitations - History of Present Illness Initial Comments - Free Text/Narative: 29 year old female presented to the ED with complaints of upper abdominal/epiga stric pain s/p ERCP on 11/09/2019 in [place]. ERCP was done to remove previously placed stent, which had dislodged, new stent was placed. Patient was discharged from hospital late morning and developed pain at approximately 1700. Nauseated with small emesis. Pain 10/10. She presented via private car to the ED for evaluation. Abdomen Pain Score (Numeric/FACES): 4 - Related Data Allergies/Adverse Reactions: Allergies Allergy/AdvReac Type Severity Reaction Status Date / Time No Known Allergies Allergy Verified 11/10/19 00:05 Home Medications: Home Meds Ibuprofen [Motrin Ib] 200 mg PO Q6HR PRN 01/19/19 [History] Lisdexamfetamine Dimesylate [Vyvanse] 40 mg PO DAILY 01/19/19 [History] Acetaminophen/HYDROcodone [[place] 325-5 MG] 1 tab PO Q6H PRN #6 tablet 11/10/19 [Rx] Ondansetron [Zofran ODT] 4 mg PO Q6H PRN #10 tab.dis 11/10/19 [Rx] Past Medical History HEENT History: Reports: Allergic Rhinitis Cardiovascular History: Reports: None Other Cardiovascular History: Tachycardia Respiratory History: Reports: Pneumothorax Other Respiratory History: Pneumonia/collapsed lung 2018 Gastrointestinal History: Reports: Cholelithiasis, Chronic Constipation, Pancreatitis Genitourinary History: Reports: Renal Calculus, Other (See Below) Other Genitourinary History: Right-sided Sided urolithiasis in 2009 with spontaneous passage 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: Musculoskeletal History: Reports: None Neurological History: Reports: None Psychiatric History: Reports: ADD, ADHD Endocrine/Metabolic History: Reports: None Hematologic History: Reports: Anemia, Iron Deficiency Immunologic History: Reports: None Oncologic (Cancer) History: Reports: None Dermatologic History: Reports: None - Infectious Disease History Infectious Disease History: Reports: Chicken Pox - Past Surgical History Head Surgeries/Procedures: Reports: None HEENT Surgical History: Reports: Oral Surgery, Other (See Below) Other HEENT Surgeries/Procedures: Neal teeth extraction 4 in 2011 Cardiovascular Surgical History: Reports: None Respiratory Surgical History: Reports: None GI Surgical History: Reports: Appendectomy, Cholecystectomy, ERCP, Hernia, Abdominal, Other (See Below) Other GI Surgeries/Procedures: umbilical hernia repair, pancreatic stent placement Female Surgical History: Reports: Other (See Below) Other Female Surgeries/Procedures: IUD placement in about 2009 with periforation Endocrine Surgical History: Reports: None Neurological Surgical History: Reports: None Musculoskeletal Surgical History: Reports: None Oncologic Surgical History: Reports: None Dermatological Surgical History: Reports: Plastic Surgical Reconstruction/Repair - Past Imaging History Past Imaging History: Reports: Ultrasound (Pelvic ultrasound in about 2010) Social & Family History - Family History HEENT: Reports: None Cardiac: Reports: None Respiratory: Reports: None GI: Reports: None : Reports: None OBGYN: Reports: None Musculoskeletal: Reports: None Neurological: Reports: None Psychiatric: Reports: Anxiety, Depression, Other (See Below) Other Psychiatric Family History: Mother with anxiety depression disorder Hematologic: Reports: Anemia, Other (See Below) Other Hematologic Family History: Mother with iron deficiency anemia Immunologic: Reports: None Dermatologic: Reports: Eczema, Seborrheic Dermatitis Other Dermatologic Family History: Brother with eczema and seborrheic dermatitis Oncologic: Reports: None - Tobacco Use Smoking Status *Q: Never Smoker - Caffeine Use Caffeine Use: Reports: Coffee Other Caffeine Use: coffee 2 cups a day - Recreational Drug Use Recreational Drug Use: No - Living Situation & Occupation Living situation: Reports: (2012, 2 children), with Family ( and 2 children) 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 Nausea controlled. Requesting ice chips or water. General: Reports: Fatigue, Decreased Appetite. Denies: Fever, Chills, Weakness HEENT: Denies: Headaches, Sinus Congestion, Sore Throat, Visual Changes Pulmonary: Reports: Pleuritic Chest Pain. Denies: Shortness of Breath, Wheezing, Cough Cardiovascular: Denies: Chest Pain, Palpitations, Edema, Lightheadedness Gastrointestinal: Reports: Abdominal Pain (epigastric and across upper abdomen), Constipation, Decreased Appetite, Nausea. Denies: Black Stool, Bloody Stool, Diarrhea, Distension, Flatus, Hematemesis, Melena, Vomiting Genitourinary: Denies: Dysuria, Frequency, Urgency, Hematuria, Retention Musculoskeletal: Denies: Joint Swelling, Muscle Pain, Muscle Stiffness Skin: Denies: Jaundice, Bruising, Rash Psychiatric: Denies: Confusion, Depression, Anxiety Neurological: Denies: Confusion, Headache, Trouble Speaking, Gait Disturbance Exam - Exam Exam: See Below - Vital Signs Vital Signs: Last Vital Signs Temp 36.6 C 11/10/19 06:07 Pulse 67 11/10/19 06:07 Resp 16 11/10/19 06:07 BP 106/68 11/10/19 06:07 Pulse Ox 98 11/10/19 06:07 Weight: 65.589 kg - Exam Physical Exam Comments:: GENERAL: Well-appearing adult in no acute distress. HEENT: Normocephalic, atraumatic. Conjunctiva clear. Nares patent without discharge. Mucous membranes moist, posterior pharynx unremarkable. NECK: Supple, no masses. CV: Regular rate and rhythm, no murmurs, rubs, or gallops. 2+ radial pulses. PULMONARY: Normal effort, clear to auscultation bilaterally, no wheezes, rales, or rhonchi. ABDOMEN: Positive bowel sounds, soft, generalized tenderness especially in the epigastric and upper abdominal area, nondistended. EXTREMITIES: No edema, cyanosis, or clubbing. MUSCULOSKELETAL: Moves all extremities well. NEUROLOGICAL: No obvious deficits. DERMATOLOGIC: No rashes or suspicious lesions in exposed areas. PSYCHIATRIC: Alert, interactive, appropriate affect. - Patient Data Lab Results Last 24 hrs: Laboratory Results - last 24 hr 11/10/19 11/10/19 11/10/19 Range/Units 00:05 00:05 00:05 WBC 23.68 H D (5.00-10.00) 10^3/uL RBC 4.52 (3.80-5.50) 10^6/uL Hgb 14.3 (12.0-16.0) g/dL Hct 40.3 (37.0-47.0) % MCV 89.2 (82.0-92.0) fL MCH 31.6 H (27.0-31.0) pg MCHC 35.5 (32.0-36.0) g/dL RDW 11.7 (11.5-14.5) % Plt Count 446 H (150-400) 10^3/uL MPV 9.1 (7.4-10.4) fL Immature Gran % (Auto) (0.0-5.0) % Neut % (Auto) (50.0-70.0) % Lymph % (Auto) (20.0-40.0) % [place] % (Auto) (2.0-8.0) % Eos % (Auto) (1.0-3.0) % Baso % (Auto) (0.0-1.0) % Neut # (Auto) (2.50-7.00) 10^3/uL Lymph # (Auto) (1.00-4.00) 10^3/uL [place] # (Auto) (0.10-0.80) 10^3/uL Eos # (Auto) (0.10-0.30) 10^3/uL Baso # (Auto) (0.00-0.10) 10^3/uL Immature Gran # (Auto) (0.00-0.50) 10^3/uL Sodium 141 (136-145) mmol/L Potassium 4.0 (3.3-5.3) mmol/L Chloride 101 (98-115) mmol/L Carbon Dioxide 24.8 (21.0-32.0) mmol/L Anion Gap 19.2 H (5-15) mmol/L BUN 9 (6-25) mg/dL Creatinine 0.56 (0.51-1.17) mg/dL Est Cr Clr Drug Dosing 145.44 mL/min Estimated GFR (MDRD) > 60 mL/min Glucose 124 H (75 - 99) mg/dL Lactic Acid 2.5 H (0.4-2.0) mmol/L Calcium 8.9 (8.7-10.3) mg/dL Total Bilirubin (0.2-1.0) mg/dL Direct Bilirubin (0.0-0.2) mg/dL Indirect Bilirubin mg/dL AST (15-37) U/L ALT (12-78) U/L Alkaline Phosphatase (46-116) IU/L C-Reactive Protein (0.0-0.9) mg/dL Total Protein (6.4-8.2) g/dL Albumin (3.00-4.80) g/dL Globulin Albumin/Globulin Ratio Lipase (73-393) U/L COVID-19 (DAMARIS) (NEGATIVE) 11/10/19 11/10/19 11/10/19 Range/Units 00:05 04:47 07:00 WBC (5.00-10.00) 10^3/uL RBC (3.80-5.50) 10^6/uL Hgb (12.0-16.0) g/dL Hct (37.0-47.0) % MCV (82.0-92.0) fL MCH (27.0-31.0) pg MCHC (32.0-36.0) g/dL RDW (11.5-14.5) % Plt Count (150-400) 10^3/uL MPV (7.4-10.4) fL Immature Gran % (Auto) (0.0-5.0) % Neut % (Auto) (50.0-70.0) % Lymph % (Auto) (20.0-40.0) % [place] % (Auto) (2.0-8.0) % Eos % (Auto) (1.0-3.0) % Baso % (Auto) (0.0-1.0) % Neut # (Auto) (2.50-7.00) 10^3/uL Lymph # (Auto) (1.00-4.00) 10^3/uL [place] # (Auto) (0.10-0.80) 10^3/uL Eos # (Auto) (0.10-0.30) 10^3/uL Baso # (Auto) (0.00-0.10) 10^3/uL Immature Gran # (Auto) (0.00-0.50) 10^3/uL Sodium (136-145) mmol/L Potassium (3.3-5.3) mmol/L Chloride (98-115) mmol/L Carbon Dioxide (21.0-32.0) mmol/L Anion Gap (5-15) mmol/L BUN (6-25) mg/dL Creatinine (0.51-1.17) mg/dL Est Cr Clr Drug Dosing mL/min Estimated GFR (MDRD) mL/min Glucose (75 - 99) mg/dL Lactic Acid 1.6 (0.4-2.0) mmol/L Calcium (8.7-10.3) mg/dL Total Bilirubin 1.0 (0.2-1.0) mg/dL Direct Bilirubin 0.1 (0.0-0.2) mg/dL Indirect Bilirubin 0.9 mg/dL AST 17 (15-37) U/L ALT 24 (12-78) U/L Alkaline Phosphatase 59 (46-116) IU/L C-Reactive Protein (0.0-0.9) mg/dL Total Protein 7.3 (6.4-8.2) g/dL Albumin 4.11 (3.00-4.80) g/dL Globulin 3.19 Albumin/Globulin Ratio 1.28 Lipase 91903 H (73-393) U/L COVID-19 (DAMARIS) Negative (NEGATIVE) 11/10/19 11/10/19 Range/Units 07:00 07:00 WBC 17.10 H (5.00-10.00) 10^3/uL RBC 3.90 (3.80-5.50) 10^6/uL Hgb 12.2 D (12.0-16.0) g/dL Hct 35.1 L (37.0-47.0) % MCV 90.0 (82.0-92.0) fL MCH 31.3 H (27.0-31.0) pg MCHC 34.8 (32.0-36.0) g/dL RDW 11.7 (11.5-14.5) % Plt Count 319 D (150-400) 10^3/uL MPV 8.5 (7.4-10.4) fL Immature Gran % (Auto) 0.3 (0.0-5.0) % Neut % (Auto) 83.7 H (50.0-70.0) % Lymph % (Auto) 7.8 L (20.0-40.0) % [place] % (Auto) 8.0 (2.0-8.0) % Eos % (Auto) 0.2 L (1.0-3.0) % Baso % (Auto) 0.0 (0.0-1.0) % Neut # (Auto) 14.32 H (2.50-7.00) 10^3/uL Lymph # (Auto) 1.33 (1.00-4.00) 10^3/uL [place] # (Auto) 1.37 H (0.10-0.80) 10^3/uL Eos # (Auto) 0.03 L (0.10-0.30) 10^3/uL Baso # (Auto) 0.00 (0.00-0.10) 10^3/uL Immature Gran # (Auto) 0.05 (0.00-0.50) 10^3/uL Sodium 140 (136-145) mmol/L Potassium 3.6 (3.3-5.3) mmol/L Chloride 106 (98-115) mmol/L Carbon Dioxide 24.3 (21.0-32.0) mmol/L Anion Gap 13.3 (5-15) mmol/L BUN 7 (6-25) mg/dL Creatinine 0.41 L (0.51-1.17) mg/dL Est Cr Clr Drug Dosing 198.66 mL/min Estimated GFR (MDRD) > 60 mL/min Glucose 107 H (75 - 99) mg/dL Lactic Acid (0.4-2.0) mmol/L Calcium 7.6 L (8.7-10.3) mg/dL Total Bilirubin 0.8 (0.2-1.0) mg/dL Direct Bilirubin (0.0-0.2) mg/dL Indirect Bilirubin mg/dL AST 12 L (15-37) U/L ALT 20 (12-78) U/L Alkaline Phosphatase 47 (46-116) IU/L C-Reactive Protein 0.7 (0.0-0.9) mg/dL Total Protein 6.0 L (6.4-8.2) g/dL Albumin 3.28 (3.00-4.80) g/dL Globulin Albumin/Globulin Ratio Lipase (73-393) U/L COVID-19 (DAMARIS) (NEGATIVE) Result Diagrams: 11/10/19 07:00 11/10/19 07:00 Dejuan Results Last 24 hrs: Microbiology 11/10/19 05:15 Anaerobic Blood Culture - Final Blood - Venous - Lab Draw Sepsis Event Note - Evaluation Sepsis Screening Result: No Definite Risk - Focused Exam Vital Signs: Vital Signs Temp Pulse Resp BP Pulse Ox 11/10/19 06:07 36.6 C 67 16 106/68 98 11/10/19 03:43 37.0 C 74 20 111/79 98 11/10/19 02:44 65 15 110/70 100 11/10/19 02:23 36.4 C 87 20 103/74 100 11/10/19 01:17 68 19 119/83 98 11/10/19 00:48 61 18 117/81 97 11/10/19 00:26 52 L 14 109/82 97 11/10/19 00:00 36.3 C 74 20 113/77 100 Problem List Initiated/Reviewed/Updated: Yes Orders Last 24hrs: Active Orders 24 hr Category Date Time Status Admission Status [Patient Status] [ADT] Routine ADT 11/10/19 03:25 Active Intake and Output [RC] 1400,2200,0600 Care 11/10/19 04:00 Active Peripheral IV Care [RC] 09,21 Care 11/10/19 00:23 Active NPO Now [Nothing per Oral Now Diet] [DIET] Diet 11/10/19 Breakfast Active CULTURE BLOOD [BC] Stat Lab 11/10/19 05:00 Received CULTURE BLOOD [BC] Stat Lab 11/10/19 05:15 Results Ciprofloxacin in D5W [Cipro in D5W 400 MG/200 ML] 400 Med 11/10/19 05:00 Acti ve mg Premix Bag 1 bag IV Q12H HYDROmorphone [Dilaudid] Med 11/10/19 03:26 Active 0.5 mg IVPUSH Q2H PRN Ondansetron [Zofran] Med 11/10/19 04:16 Active 4 mg IVPUSH Q4H PRN Sodium Chloride 0.9% [Normal Saline] 1,000 ml Med 11/10/19 03:30 Active IV ASDIRECTED Sodium Chloride 0.9% [Saline Flush] Med 11/10/19 00:23 Active 10 ml FLUSH Q8HR PRN Blood Culture x2 Reflex Set [OM.PC] Stat Oth 11/10/19 04:16 Ordered Peripheral IV Insertion Adult [OM.PC] Routine Oth 11/10/19 00:23 Ordered Resuscitation Status Routine Resus Stat 11/10/19 05:09 Ordered Medication Orders Hydromorphone HCl (Dilaudid) 0.5 mg IVPUSH Q2H PRN PRN Reason: Abdominal Pain Last Admin: 11/10/19 08:54 Dose: 0.5 mg Documented by: Admin: 11/10/19 06:24 Dose: 0.5 mg Documented by: Admin: 11/10/19 04:21 Dose: 0.5 mg Documented by: ALY Sodium Chloride (Normal Saline) 1,000 mls @ 250 mls/hr IV ASDIRECTED BRAN Last Admin: 11/10/19 05:18 Dose: 250 mls/hr Documented by: ALY Ciprofloxacin/Dextrose 400 mg/ (Premix) 200 mls @ 200 mls/hr IV Q12H [facility] Last Admin: 11/10/19 05:19 Dose: 200 mls/hr Documented by: ALY Ondansetron HCl (Zofran) 4 mg IVPUSH Q4H PRN PRN Reason: Nausea/Vomiting Last Admin: 11/10/19 05:07 Dose: 4 mg Documented by: ALY Sodium Chloride (Saline Flush) 10 ml FLUSH Q8HR PRN PRN Reason: keep vein open Last Admin: 11/10/19 00:07 Dose: 10 ml Documented by: EDEL Assessment/Plan Comment:: HPI summary: 29 year old female presented to the ED with complaints of upper abdominal/epigastric pain s/p ERCP on 11/09/2019 in [place]. ERCP was done to remove previously placed stent, which had dislodged, new stent was placed. No noted complications per op report. Patient was discharged from hospital with prophylactic Cipro 500mg twice daily to prevent infection after ERCP and stent placement in the late morning and developed epigastric pain at approximately 1700. Nauseated with small emesis. She had taken one dose of her oral Cipro post op but vomited shortly after. Pain 10/10. She presented via private car to the ED for evaluation where she was found to have acute pancreatitis. Admitted inpatient status for hydration and pain control. ED course: -VS: 97.5, P65, R15, BP 110/70, O2 sat 100% -Labs: WBC 23.68, no anemia, plt 446, electrolytes stable, lactate 2.5 with anion gap 19.2 (no other signs sepsis), glucose 124, kidney function stable, LFT stable, lipase 29360 -Abd CT: Acute pancreatitis with small amount of pelvic and abdominal free fluid -NS 1000mL bolus over one hour x 2, then 250mL/hr after -ondansetron 8mg with relief of nausea -hydromorphone 1mg with relief of pain followed by 0.5mg every two hours PRN Hospital course: -11/10/2019: No overnight concerns. NS running at 250mL/hr. Pain controlled 05/21 with hydromorphone 0.5mg PRN every two hours. Nausea improved with ondansetron 4mg IV every four hours PRN. Patient is voiding. No bowel movement since arrival and she is not passing gas but does have bowel sounds. Requesting ice chips/water. Lactate 1.6 this AM. WBC 17.10, Hgb 12.2, Hct 35.1, Neut 83.7%, lymph 7.8%, eos 0.2%, electrolytes stable with low calcium 7.6, kidney function normal, glucose 107, CRP 0.7; blood cultures pending. Continue Cipro IV twice daily for infection prophylaxis as ordered by gastroenterology post op. Elevated WBC and neutrophils, but no other s/s of sepsis or infection. Hospitalization problems and plan: # Acute pancreatitis - Continue NS 250mL/hr IV - Continue hydromorphone 0.5mg IV every two hours PRN pain - Continue ondansetron 4mg IV PRN pain - May have ice chips and sips of water; otherwise NPO - CBC and CMP in the AM - Accurate I/O # S/P ERCP with stent placement - Continue Cipro 400mg IV twice daily for total of three days for infection prophylaxis Chronic, stable conditions: # ADHD: hold Vyvanse for now Hospitalization details: # FEN: NS 250mL/hour IV, electrolytes stable, NPO with ice chips and sips of water # PPX: DVT risk score 0 # Code status: Full code # Emergency contact: FriendBerry updated at bedside # Disposition: plan for discharge to home to self care after approximately two to three midnights - Mortality Measure Prognosis:: Good
[2019-11-11] MEDS: HYDROmorphone 1 MG/ML Syringe IVPUSH PRN ×10 (00:16→22:11)
[2019-11-11] MEDS: Sodium Chloride 0.9% 1,000 ML IV SCH ×3 (00:16→09:27)
[2019-11-11] MEDS: Ciprofloxacin in D5W 400 MG in Premix Bag 1 BAG IV SCH ×4 (04:21→17:15)
[2019-11-11] MEDS: Ondansetron 4 MG/2 ML SDV IVPUSH PRN (04:30)
[2019-11-11] MEDS: Sodium Chloride 0.9% 10 ML Syringe FLUSH PRN (09:33)
--- NOTE | 2019-11-11 11:14 | PCM.PN ---
- General Info Date of Service: 11/11/19 Admission Dx/Problem (Free Text): Admission Diagnosis/Problem Admission Diagnosis/Problem Pancreatitis Subjective Update: Patient resting in bed. Pain is stable, no worse or better. Still has nausea at times. Vomited once yesterday. No overnight concerns. Functional Status: Reports: Pain Controlled, Urinating - Review of Systems General: Reports: Fatigue. Denies: Fever, Chills, Appetite HEENT: Denies: Headaches, Sinus Congestion, Sore Throat Pulmonary: Reports: Pleuritic Chest Pain (abdomen hurts when takes a deep breath), Cough (rare dry). Denies: Shortness of Breath, Wheezing Cardiovascular: Denies: Chest Pain, Palpitations, Edema Gastrointestinal: Reports: Abdominal Pain, Decreased Appetite, Nausea. Denies: Diarrhea, Flatus, Vomiting Genitourinary: Denies: Dysuria, Urgency, Hematuria Musculoskeletal: Denies: Back Pain, Joint Pain, Joint Swelling Skin: Denies: Dryness, Bruising, Rash Neurological: Denies: Confusion, Headache, Weakness, Gait Disturbance Psychiatric: Denies: Confusion, Anxiety, Agitation - Patient Data Vitals - Most Recent: Last Vital Signs Temp 37.3 C 11/11/19 11:00 Pulse 89 11/11/19 11:00 Resp 16 11/11/19 11:00 BP 108/61 11/11/19 11:00 Pulse Ox 90 L 11/11/19 11:00 Weight - Most Recent: 65.589 kg I&O - Last 24 Hours: Intake & Output 11/10/19 11/11/19 11/11/19 22:59 06:59 14:59 Intake Total 1873 1855 Output Total 1400 1500 Balance 473 355 Lab Results Last 24 Hours: Laboratory Results - last 24 hr 11/11/19 11/11/19 Range/Units 07:17 07:17 WBC 12.45 H (5.00-10.00) 10^3/uL RBC 3.64 L (3.80-5.50) 10^6/uL Hgb 11.4 L (12.0-16.0) g/dL Hct 33.3 L (37.0-47.0) % MCV 91.5 (82.0-92.0) fL MCH 31.3 H (27.0-31.0) pg MCHC 34.2 (32.0-36.0) g/dL RDW 12.1 (11.5-14.5) % Plt Count 285 (150-400) 10^3/uL MPV 8.6 (7.4-10.4) fL Immature Gran % (Auto) 0.1 (0.0-5.0) % Neut % (Auto) 78.7 H (50.0-70.0) % Lymph % (Auto) 12.1 L (20.0-40.0) % Moore % (Auto) 8.0 (2.0-8.0) % Eos % (Auto) 1.0 (1.0-3.0) % Baso % (Auto) 0.1 (0.0-1.0) % Neut # (Auto) 9.81 H (2.50-7.00) 10^3/uL Lymph # (Auto) 1.51 (1.00-4.00) 10^3/uL Moore # (Auto) 0.99 H (0.10-0.80) 10^3/uL Eos # (Auto) 0.12 (0.10-0.30) 10^3/uL Baso # (Auto) 0.01 (0.00-0.10) 10^3/uL Immature Gran # (Auto) 0.01 (0.00-0.50) 10^3/uL Carbon Dioxide 20.1 L (21.0-32.0) mmol/L Anion Gap 15.2 H (5-15) mmol/L BUN 3 L (6-25) mg/dL Creatinine 0.39 L (0.51-1.17) mg/dL Est Cr Clr Drug Dosing 208.84 mL/min Estimated GFR (MDRD) > 60 mL/min Glucose 80 (75 - 99) mg/dL Calcium 7.5 L (8.7-10.3) mg/dL Total Bilirubin 0.8 (0.2-1.0) mg/dL AST 9 L (15-37) U/L ALT 14 (12-78) U/L Alkaline Phosphatase 46 (46-116) IU/L Total Protein 5.6 L (6.4-8.2) g/dL Albumin 2.82 L (3.00-4.80) g/dL Dejuan Results Last 24 Hours: Microbiology 11/10/19 05:15 Aerobic Blood Culture - Preliminary Blood - Venous - Lab Draw NO GROWTH AFTER 1 DAY Anaerobic Blood Culture - Final 11/10/19 05:00 Aerobic Blood Culture - Preliminary Blood - Arm, Right NO GROWTH AFTER 1 DAY Anaerobic Blood Culture - Preliminary NO GROWTH AFTER 1 DAY Med Orders - Current: Current Medications Hydromorphone HCl (Dilaudid) 0.5 mg IVPUSH Q2H PRN PRN Reason: Abdominal Pain Last Admin: 11/11/19 09:30 Dose: 0.5 mg Documented by: Sodium Chloride (Normal Saline) 1,000 mls @ 250 mls/hr IV ASDIRECTED [facility] Last Admin: 11/11/19 09:27 Dose: 250 mls/hr Documented by: Ciprofloxacin/Dextrose 400 mg/ (Premix) 200 mls @ 200 mls/hr IV Q12H [facility] Last Admin: 11/11/19 04:21 Dose: 200 mls/hr Documented by: Ondansetron HCl (Zofran) 4 mg IVPUSH Q4H PRN PRN Reason: Nausea/Vomiting Last Admin: 11/11/19 04:30 Dose: 4 mg Documented by: Sodium Chloride (Saline Flush) 10 ml FLUSH Q8HR PRN PRN Reason: keep vein open Last Admin: 11/11/19 09:33 Dose: 10 ml Documented by: Discontinued Medications Hydromorphone HCl (Dilaudid) 1 mg IVPUSH ONETIME ONE Stop: 11/10/19 00:10 Last Admin: 11/10/19 00:11 Dose: 0.5 mg Documented by: Hydromorphone HCl (Dilaudid) 0.5 mg IVPUSH ONETIME ONE Stop: 11/10/19 02:14 Last Admin: 11/10/19 02:18 Dose: 0.5 mg Documented by: Hydromorphone HCl (Dilaudid) 0.5 mg IVPUSH ONETIME ONE Stop: 11/10/19 18:23 Last Admin: 11/10/19 23:31 Dose: Not Given Documented by: Sodium Chloride (Normal Saline) 1,000 mls @ 999 mls/hr IV .BOLUS ONE Stop: 11/10/19 02:41 Last Admin: 11/10/19 01:45 Dose: 999 mls/hr Documented by: Sodium Chloride (Normal Saline) Confirm Administered Dose 1,000 mls @ as directed .ROUTE .STK-MED ONE Stop: 11/10/19 01:41 Last Admin: 11/10/19 01:44 Dose: Not Given Documented by: Sodium Chloride (Normal Saline) 1,000 mls @ 999 mls/hr IV .BOLUS ONE Stop: 11/10/19 04:20 Last Admin: 11/10/19 03:35 Dose: 999 mls/hr Documented by: Ciprofloxacin/Dextrose 400 mg/ (Premix) 200 mls @ 200 mls/hr IV Q12H [facility] Ondansetron HCl (Zofran) Confirm Administered Dose 4 mg .ROUTE .STK-MED ONE Stop: 11/10/19 00:02 Last Admin: 11/10/19 00:07 Dose: Not Given Documented by: Ondansetron HCl (Zofran) 4 mg IVPUSH ONETIME ONE Stop: 11/10/19 00:06 Last Admin: 11/10/19 00:07 Dose: 4 mg Documented by: Ondansetron HCl (Zofran Odt) 8 mg PO Q6H PRN PRN Reason: Nausea/Vomiting Ondansetron HCl (Zofran) 4 mg IVPUSH ONETIME ONE Stop: 11/10/19 18:22 Last Admin: 11/10/19 23:30 Dose: Not Given Documented by: - Exam Physical Findings Comments:: GENERAL: Well-appearing adult in no acute distress. HEENT: Normocephalic, atraumatic. Conjunctiva clear. Nares patent without discharge. Mucous membranes moist, posterior pharynx unremarkable. NECK: Supple, no masses. CV: Regular rate and rhythm, no murmurs, rubs, or gallops. 2+ radial pulses. PULMONARY: Normal effort, clear to auscultation bilaterally, no wheezes, rales, or rhonchi. ABDOMEN: Hypoactive bowel sounds, soft, tenderness to palpation, especially generalized upper abdomen, nondistended. EXTREMITIES: No edema, cyanosis, or clubbing. MUSCULOSKELETAL: Moves all extremities well. NEUROLOGICAL: No obvious deficits. DERMATOLOGIC: No rashes or suspicious lesions in exposed areas. PSYCHIATRIC: Alert, interactive, appropriate affect. Sepsis Event Note - Evaluation Sepsis Screening Result: No Definite Risk - Focused Exam Vital Signs: Vital Signs Temp Pulse Resp BP Pulse Ox 11/11/19 11:00 37.3 C 89 16 108/61 90 L 11/11/19 06:43 36.2 C 90 24 H 102/66 94 L 11/11/19 02:29 37.4 C 88 24 H 109/65 91 L - Problem List Review Problem List Initiated/Reviewed/Updated: Yes - My Orders Last 24 Hours: My Active Orders 11/10/19 10:46 Communication Order [RC] 0900,2100 11/11/19 07:17 CMP [COMPREHENSIVE METABOLIC PN,CMP] [CHEM] AM - Plan Plan:: HPI summary: 29 year old female presented to the ED with complaints of upper abdominal/epigastric pain s/p ERCP on 11/09/2019 in [place]. ERCP was done to remove previously placed stent, which had dislodged, new stent was placed. No noted complications per op report. Patient was discharged from hospital with prophylactic Cipro 500mg twice daily to prevent infection after ERCP and stent placement in the late morning and developed epigastric pain at approximately 1700. Nauseated with small emesis. She had taken one dose of her oral Cipro post op but vomited shortly after. Pain 10. She presented via private car to the ED for evaluation where she was found to have acute pancreatitis. Admitted inpatient status for hydration and pain control. ED course: -VS: 97.5, P65, R15, BP 110/70, O2 sat 100% -Labs: WBC 23.68, no anemia, plt 446, electrolytes stable, lactate 2.5 with anion gap 19.2 (no other signs sepsis), glucose 124, kidney function stable, LFT stable, lipase [id number] -Abd CT: Acute pancreatitis with small amount of pelvic and abdominal free fluid -NS 1000mL bolus over one hour x 2, then 250mL/hr after -ondansetron 8mg with relief of nausea -hydromorphone 1mg with relief of pain followed by 0.5mg every two hours PRN Hospital course: -11/10/2019: No overnight concerns. NS running at 250mL/hr. Pain controlled 10 with hydromorphone 0.5mg PRN every two hours. Nausea improved with ondansetron 4mg IV every four hours PRN. Patient is voiding. No bowel movement since arrival and she is not passing gas but does have bowel sounds. Requesting ice chips/water. Lactate 1.6 this AM. WBC 17.10, Hgb 12.2, Hct 35.1, Neut 83.7%, lymph 7.8%, eos 0.2%, electrolytes stable with low calcium 7.6, kidney function normal, glucose 107, CRP 0.7; blood cultures pending. Continue Cipro IV twice daily for infection prophylaxis as ordered by gastroenterology post op. Elevated WBC and neutrophils, but no other s/s of sepsis or infection. -11/11/2019: Patient did have increased pain noted 11/10/2019 in the afternoon for which a one time order for extra hydromorphone was ordered, but she did not receive. She had a small green emesis and pain improved per nursing. She has been requesting the IV hydromorphone every two hours and has had some Zofran occasionally. She states her pain is "about the same", not worsening. Abdomen is soft, non distended, still quite tender. WBC 12.45, RBC 3.64, Hgb 11.4, Hct 33.3, Neut 78.7%, lymph 12.1%, Na 136, K 3.3, Cl 105, Ca 7.5, kidneys and LFT unremarkable. Afebrile. VSS. Mild decrease in O2 sat likely due to decreased respiratory drive from Dilauidid. Will have patient up and walk today. 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 Hospitalization problems and plan: # Acute pancreatitis - Discontinue NS - Start LR 250mL/hr IV - Continue hydromorphone 0.5mg IV every two hours PRN pain - Continue ondansetron 4mg IV PRN pain - May have ice chips and sips of water; otherwise NPO - CBC, CMP, CRP and lipase in the AM - Accurate I/O - Ambulate in halls three times a day # S/P ERCP with stent placement - Continue Cipro 400mg IV twice daily for total of three days for infection prophylaxis Chronic, stable conditions: # ADHD: hold Vyvanse for now Hospitalization details: # FEN: LR 250mL/hour IV, electrolytes stable, NPO with ice chips and sips of water # PPX: DVT risk score 0 # Code status: Full code # Emergency contact: Friend, Berry updated by patient or nursing # Disposition: plan for discharge to home to self care after approximately three midnights, if not improving by 11/12/2019 AM may need to consult [facility]
[2019-11-11 11:21] LABS: ANION GAP 14.2 mmol/L (5-15); CHLORIDE,CL 105 mmol/L (98-115); SODIUM,NA 136 mmol/L (136-145)
[2019-11-11] MEDS: Lactated Ringers 1,000 ML IV SCH ×2 (14:17→19:47)
--- NOTE | 2019-11-11 17:01 | CR ---
[id number] RAD/RAD Chest PA or AP 1V EXAM: SINGLE VIEW CHEST. INDICATION: HYPOXIA COMPARISON: CORRELATION IS MADE WITH SEPTEMBER 08, 2019 FINDINGS: Bibasilar infiltrates, volume loss, and effusion are seen There is a stent in the common duct The gallbladder has been removed IMPRESSION: BIBASILAR INFILTRATES, EFFUSIONS, AND ATELECTASIS Rosalino Vallecillo MD 11/11/19 [id number] Thank you for allowing us to participate in the care of your patient.
[2019-11-12] MEDS: HYDROmorphone 1 MG/ML Syringe IVPUSH PRN ×4 (00:05→10:58)
[2019-11-12] MEDS: Lactated Ringers 1,000 ML IV SCH ×3 (02:17→18:32)
[2019-11-12] MEDS: Ciprofloxacin in D5W 400 MG in Premix Bag 1 BAG IV SCH ×4 (05:10→16:47)
[2019-11-12 08:15] LABS: ANION GAP 16.4 mmol/L (5-15); CHLORIDE,CL 104 mmol/L (98-115); SODIUM,NA 138 mmol/L (136-145)
--- NOTE | 2019-11-12 09:56 | PCM.PN ---
- General Info Date of Service: 11/12/19 Functional Status: Reports: Tolerating Diet, Ambulating, Urinating, Incentive Spirometry (1500 ml ) - Review of Systems General: Reports: Appetite. Denies: Fever, Weakness, Fatigue, Malaise, Chills, Night Sweats HEENT: Reports: No Symptoms Pulmonary: Denies: Shortness of Breath, Cough, Sputum, Wheezing Cardiovascular: Reports: No Symptoms Gastrointestinal: Reports: Abdominal Pain (Abdominal pain very low-grade today--slight boring sensation to mid back region) Genitourinary: Reports: No Symptoms Musculoskeletal: Reports: No Symptoms Skin: Reports: No Symptoms Neurological: Reports: No Symptoms Psychiatric: Reports: No Symptoms - Patient Data Vitals - Most Recent: Last Vital Signs Temp 98 F 11/12/19 05:18 Pulse 76 11/12/19 05:18 Resp 16 11/12/19 05:18 BP 91/51 L 11/12/19 05:18 Pulse Ox 99 11/12/19 05:18 Weight - Most Recent: 144 lb 9.6 oz I&O - Last 24 Hours: Intake & Output 11/11/19 11/12/19 11/12/19 22:59 06:59 14:59 Intake Total 1050 1253 Balance 1050 1253 Lab Results Last 24 Hours: Laboratory Results - last 24 hr 11/11/19 11/12/19 11/12/19 Range/Units 07:17 07:20 07:20 WBC 10.89 H (5.00-10.00) 10^3/uL RBC 3.75 L (3.80-5.50) 10^6/uL Hgb 11.9 L (12.0-16.0) g/dL Hct 34.0 L (37.0-47.0) % MCV 90.7 (82.0-92.0) fL MCH 31.7 H (27.0-31.0) pg MCHC 35.0 (32.0-36.0) g/dL RDW 11.8 (11.5-14.5) % Plt Count 246 (150-400) 10^3/uL MPV 9.1 (7.4-10.4) fL Immature Gran % (Auto) 0.2 (0.0-5.0) % Neut % (Auto) 71.5 H (50.0-70.0) % Lymph % (Auto) 15.7 L (20.0-40.0) % Quay % (Auto) 9.6 H (2.0-8.0) % Eos % (Auto) 2.7 (1.0-3.0) % Baso % (Auto) 0.3 (0.0-1.0) % Neut # (Auto) 7.80 H (2.50-7.00) 10^3/uL Lymph # (Auto) 1.71 (1.00-4.00) 10^3/uL Quay # (Auto) 1.04 H (0.10-0.80) 10^3/uL Eos # (Auto) 0.29 (0.10-0.30) 10^3/uL Baso # (Auto) 0.03 (0.00-0.10) 10^3/uL Immature Gran # (Auto) 0.02 (0.00-0.50) 10^3/uL Sodium 136 138 (136-145) mmol/L Potassium 3.3 3.9 (3.3-5.3) mmol/L Chloride 105 104 (98-115) mmol/L Carbon Dioxide 21.5 (21.0-32.0) mmol/L Anion Gap 14.2 16.4 H (5-15) mmol/L BUN 3 L (6-25) mg/dL Creatinine 0.38 L (0.51-1.17) mg/dL Est Cr Clr Drug Dosing 214.34 mL/min Estimated GFR (MDRD) > 60 mL/min Glucose 76 (75 - 99) mg/dL Calcium 7.8 L (8.7-10.3) mg/dL Total Bilirubin 0.8 (0.2-1.0) mg/dL AST 17 (15-37) U/L ALT 18 (12-78) U/L Alkaline Phosphatase 51 (46-116) IU/L C-Reactive Protein 8.3 H (0.0-0.9) mg/dL Total Protein 5.7 L (6.4-8.2) g/dL Albumin 2.67 L (3.00-4.80) g/dL Lipase 1838 H (73-393) U/L Dejuan Results Last 24 Hours: Microbiology 11/10/19 05:15 Aerobic Blood Culture - Preliminary Blood - Venous - Lab Draw NO GROWTH AFTER 2 DAYS Anaerobic Blood Culture - Final 11/10/19 05:00 Aerobic Blood Culture - Preliminary Blood - Arm, Right NO GROWTH AFTER 2 DAYS Anaerobic Blood Culture - Preliminary NO GROWTH AFTER 2 DAYS Med Orders - Current: Current Medications Hydromorphone HCl (Dilaudid) 0.5 mg IVPUSH Q2H PRN PRN Reason: Abdominal Pain Last Admin: 11/12/19 06:27 Dose: 0.5 mg Documented by: Ciprofloxacin/Dextrose 400 mg/ (Premix) 200 mls @ 200 mls/hr IV Q12H [facility] Last Admin: 11/12/19 05:10 Dose: 200 mls/hr Documented by: Lactated Ringer's (Ringers, Lactated) 1,000 mls @ 150 mls/hr IV ASDIRECTED [facility] Last Admin: 11/12/19 02:17 Dose: 150 mls/hr Documented by: Ondansetron HCl (Zofran) 4 mg IVPUSH Q4H PRN PRN Reason: Nausea/Vomiting Last Admin: 11/11/19 04:30 Dose: 4 mg Documented by: Sodium Chloride (Saline Flush) 10 ml FLUSH Q8HR PRN PRN Reason: keep vein open Last Admin: 11/11/19 09:33 Dose: 10 ml Documented by: Discontinued Medications Hydromorphone HCl (Dilaudid) 1 mg IVPUSH ONETIME ONE Stop: 11/10/19 00:10 Last Admin: 11/10/19 00:11 Dose: 0.5 mg Documented by: Hydromorphone HCl (Dilaudid) 0.5 mg IVPUSH ONETIME ONE Stop: 11/10/19 02:14 Last Admin: 11/10/19 02:18 Dose: 0.5 mg Documented by: Hydromorphone HCl (Dilaudid) 0.5 mg IVPUSH ONETIME ONE Stop: 11/10/19 18:23 Last Admin: 11/10/19 23:31 Dose: Not Given Documented by: Sodium Chloride (Normal Saline) 1,000 mls @ 999 mls/hr IV .BOLUS ONE Stop: 11/10/19 02:41 Last Admin: 11/10/19 01:45 Dose: 999 mls/hr Documented by: Sodium Chloride (Normal Saline) Confirm Administered Dose 1,000 mls @ as directed .ROUTE .STK-MED ONE Stop: 11/10/19 01:41 Last Admin: 11/10/19 01:44 Dose: Not Given Documented by: Sodium Chloride (Normal Saline) 1,000 mls @ 999 mls/hr IV .BOLUS ONE Stop: 11/10/19 04:20 Last Admin: 11/10/19 03:35 Dose: 999 mls/hr Documented by: Sodium Chloride (Normal Saline) 1,000 mls @ 250 mls/hr IV ASDIRECTED [facility] Last Admin: 11/11/19 09:27 Dose: 250 mls/hr Documented by: Ciprofloxacin/Dextrose 400 mg/ (Premix) 200 mls @ 200 mls/hr IV Q12H [facility] Ondansetron HCl (Zofran) Confirm Administered Dose 4 mg .ROUTE .STK-MED ONE Stop: 11/10/19 00:02 Last Admin: 11/10/19 00:07 Dose: Not Given Documented by: Ondansetron HCl (Zofran) 4 mg IVPUSH ONETIME ONE Stop: 11/10/19 00:06 Last Admin: 11/10/19 00:07 Dose: 4 mg Documented by: Ondansetron HCl (Zofran Odt) 8 mg PO Q6H PRN PRN Reason: Nausea/Vomiting Ondansetron HCl (Zofran) 4 mg IVPUSH ONETIME ONE Stop: 11/10/19 18:22 Last Admin: 11/10/19 23:30 Dose: Not Given Documented by: - Exam Quality Assessment: Supplemental Oxygen General: Alert, Oriented, Cooperative, No Acute Distress Neck: Supple, No JVD Lungs: Decreased Breath Sounds (Reduced pulmonary excursion right base posteriorly, crackles) GI/Abdominal Exam: Soft, No Distention, Tender. No: No Organomegaly, Distended, Guarding, Rigid, Abnormal Bowel Sounds, Mass (Female) Exam: Deferred Back Exam: No: CVA Tenderness (L), CVA Tenderness (R) Extremities: No Pedal Edema Peripheral Pulses: 2+: Radial (L), 3+: Radial (R) Skin: Warm, Dry, Intact Neurological: Normal Speech, Sensation Intact Psy/Mental Status: Alert, Normal Affect, Normal Mood Sepsis Event Note - Evaluation Sepsis Screening Result: No Definite Risk - Focused Exam Vital Signs: Vital Signs Temp Pulse Resp BP Pulse Ox 11/12/19 05:18 98 F 76 16 91/51 L 99 11/12/19 02:59 98.9 F 81 16 93/49 L 95 11/11/19 22:20 98.7 F 78 18 106/68 98 - Problem List Review Problem List Initiated/Reviewed/Updated: Yes - Plan Plan:: HPI summary: 29 year old female presented to the ED with complaints of upper abdominal/epigastric pain s/p ERCP on 11/09/2019 in [place]. ERCP was done to remove previously placed stent, which had dislodged, new stent was placed. No noted complications per op report. Patient was discharged from hospital with prophylactic Cipro 500mg twice daily to prevent infection after ERCP and stent placement in the late morning and developed epigastric pain at approximately 1700. Nauseated with small emesis. She had taken one dose of her oral Cipro post op but vomited shortly after. Pain 10. She presented via private car to the ED for evaluation where she was found to have acute pancreatitis. Admitted inpatient status for hydration and pain control. ED course: -VS: 97.5, P65, R15, BP 110/70, O2 sat 100% -Labs: WBC 23.68, no anemia, plt 446, electrolytes stable, lactate 2.5 with anion gap 19.2 (no other signs sepsis), glucose 124, kidney function stable, LFT stable, lipase [id number] -Abd CT: Acute pancreatitis with small amount of pelvic and abdominal free fluid -NS 1000mL bolus over one hour x 2, then 250mL/hr after -ondansetron 8mg with relief of nausea -hydromorphone 1mg with relief of pain followed by 0.5mg every two hours PRN Hospital course: -11/10/2019: No overnight concerns. NS running at 250mL/hr. Pain controlled /10 with hydromorphone 0.5mg PRN every two hours. Nausea improved with ondansetron 4mg IV every four hours PRN. Patient is voiding. No bowel movement since arrival and she is not passing gas but does have bowel sounds. Requesting ice chips/water. Lactate 1.6 this AM. WBC 17.10, Hgb 12.2, Hct 35.1, Neut 83.7%, lymph 7.8%, eos 0.2%, electrolytes stable with low calcium 7.6, kidney function normal, glucose 107, CRP 0.7; blood cultures pending. Continue Cipro IV twice daily for infection prophylaxis as ordered by gastroenterology post op. Elevated WBC and neutrophils, but no other s/s of sepsis or infection. -11/11/2019: Patient did have increased pain noted 11/10/2019 in the afternoon for which a one time order for extra hydromorphone was ordered, but she did not receive. She had a small green emesis and pain improved per nursing. She has been requesting the IV hydromorphone every two hours and has had some Zofran occasionally. She states her pain is "about the same", not worsening. Abdomen is soft, non distended, still quite tender. WBC 12.45, RBC 3.64, Hgb 11.4, Hct 33.3, Neut 78.7%, lymph 12.1%, Na 136, K 3.3, Cl 105, Ca 7.5, kidneys and LFT unremarkable. Afebrile. VSS. Mild decrease in O2 sat likely due to decreased respiratory drive from Dilauidid. Will have patient up and walk today. cover creaser to LR from NS with continued rate of 250mL/hr. Update today, pain vastly improved with improving pancreatic indices, no fever, Glucose 76, calcium 7.8--minimally corrects, No signs of pancreatic ascites Improving leukocytosis, no fever, no signs of systemic bacteremia, suspect pleural effusions transudative 2/2 inflammation, low risk for stress ulcer bleeding, hungry, using ICS. Hospitalization problems and plan: # Acute pancreatitis # S/P ERCP with stent placement - Continue Cipro 400mg IV twice daily for total of three days for infection prophylaxis Chronic, stable conditions: # ADHD: hold Vyvanse for now Hospitalization details: # FEN: LR 150mL/hour IV, # PPX: DVT risk score 0 # Code status: Full code # Emergency contact: FriendBerry Disposition/overall plan --Patient continues to meet inpatient criteria due to the need for diet advancement close monitoring for endocrine insufficiency, --Ambulate in halls three times a day --Advance diet today slowly --Ketoralac cesar --Ambulation, --pulmonary toilet, attempt to wean 02. Monitor oxygen needs- --Monitor for signs of endocrine insufficiency--twice daily Accu-Cheks as diet is advanced --Assess mg+
[2019-11-12] MEDS: Ketorolac 30 MG/ML SDV IVPUSH SCH ×3 (10:26→22:15)
[2019-11-12] MEDS: Sodium Chloride 0.9% 10 ML Syringe FLUSH PRN (10:27)
[2019-11-12] MEDS ORDERED: Acetaminophen/HYDROcodone 325-5 MG Tab PO PRN (15:37)
[2019-11-13] MEDS: Lactated Ringers 1,000 ML IV SCH (00:55)
[2019-11-13] MEDS: Ketorolac 30 MG/ML SDV IVPUSH SCH ×2 (05:06→11:03)
[2019-11-13] MEDS: Ciprofloxacin in D5W 400 MG in Premix Bag 1 BAG IV SCH ×2 (05:07)
[2019-11-13 12:30] VITALS: BP 113/83; PULSE 92
--- NOTE | 2019-11-14 09:17 | PCM.DCSUM1 ---
Discharge Summary - Hospital Course Diagnosis: Stroke: No - Discharge Data Discharge Date: 11/13/19 Discharge Disposition: Home, Self-Care 01 Condition: Good - Referral to Home Health Primary Care Physician: Jarocho Schwab NP - Patient Instructions Diet: Drink 8-10+ Glasses/Day Activity: As Tolerated Driving: May Drive Today Showering/Bathing: May Shower Notify Provider of: Fever, Increased Pain, Nausea and/or Vomiting Other/Special Instructions: Slowly incorporate low-fat low sugary foods in your diet. Soft foods, full liquids, Jell-O's, soups, breads. --Report if you are not able to advance your diet. --Report any further abdominal pain, fever, vomiting. Stay well-hydrated, - Discharge Plan *PRESCRIPTION DRUG MONITORING PROGRAM REVIEWED*: Not Applicable *COPY OF PRESCRIPTION DRUG MONITORING REPORT IN PATIENT AL: Not Applicable Prescriptions/Med Rec: Acetaminophen/HYDROcodone [[place] 325-5 MG] 1 tab PO Q6H PRN #6 tablet PRN Reason: Abdominal Pain Ondansetron [Zofran ODT] 4 mg PO Q6H PRN #10 tab.dis PRN Reason: Nausea/Vomiting Home Medications: Home Meds Lisdexamfetamine Dimesylate [Vyvanse] 40 mg PO DAILY 01/19/19 [History] Acetaminophen/HYDROcodone [[place] 325-5 MG] 1 tab PO Q6H PRN #6 tablet 11/10/19 [Rx] Ondansetron [Zofran ODT] 4 mg PO Q6H PRN #10 tab.dis 11/10/19 [Rx] Ibuprofen [Motrin Ib] 400 mg PO Q6HR PRN #60 11/13/19 [Rx] Referrals: PCP,Unobtain [Ordering Only Provider] - 11/16/19 1:30 pm (Tuesday in [place], provider of choice) - Discharge Summary/Plan Comment DC Time >30 min.: Yes Discharge Summary/Plan Comment: Final diagnosis Acute pancreatitis, S/P ERCP with stent placement Pleural effusions transudative 2/2 inflammation HPI summary: 29 year old female had presented to the ED with complaints of upper abdominal/epigastric pain s/p ERCP on 11/09/2019 in [place]. ERCP was done to remove previously placed stent, which had dislodged, new stent was placed. No noted complications per op report. Patient was discharged from hospital with prophylactic Cipro 500mg twice daily to prevent infection after ERCP and stent placement in the late morning and developed epigastric pain at approximately 1700. Nauseated with small emesis. She had taken one dose of her oral Cipro post op but vomited shortly after. Pain 10/10. She presented via private car to the ED for evaluation where she was found to have acute pancreatitis. Admitted inpatient status for hydration and pain control. Her ED course: -VS: 97.5, P65, R15, BP 110/70, O2 sat 100% -Labs: WBC 23.68, no anemia, plt 446, electrolytes stable, lactate 2.5 with an ion gap 19.2 (no other signs sepsis), glucose 124, kidney function stable, LFT stable, lipase 94160 -Abd CT: Acute pancreatitis with small amount of pelvic and abdominal free fluid -NS 1000mL bolus over one hour x 2, then 250mL/hr after -ondansetron 8mg with relief of nausea -hydromorphone 1mg with relief of pain followed by 0.5mg every two hours PRN Hospital course: -11/10/2019: No overnight concerns. NS running at 250mL/hr. Pain controlled 10 with hydromorphone 0.5mg PRN every two hours. Nausea improved with ondansetron 4mg IV every four hours PRN. Patient is voiding. No bowel movement since arrival and she is not passing gas but does have bowel sounds. Requesting ice chips/water. Lactate 1.6 this AM. WBC 17.10, Hgb 12.2, Hct 35.1, Neut 8 3.7%, lymph 7.8%, eos 0.2%, electrolytes stable with low calcium 7.6, kidney function normal, glucose 107, CRP 0.7; blood cultures pending. Continue Cipro IV twice daily for infection prophylaxis as ordered by gastroenterology post op. Elevated WBC and neutrophils, but no other s/s of sepsis or infection. -11/11/2019: Patient did have increased pain noted 11/10/2019 in the afternoon for which a one time order for extra hydromorphone was ordered, but she did not receive. She had a small green emesis and pain improved per nursing. She has been requesting the IV hydromorphone every two hours and has had some Zofran occasionally. She states her pain is "about the same", not worsening. Abdomen is soft, non distended, still quite tender. WBC 12.45, RBC 3.64, Hgb 11.4, Hct 33.3, Neut 78.7%, lymph 12.1%, Na 136, K 3.3, Cl 105, Ca 7.5, kidneys and LFT unremarkable. Afebrile. VSS. Mild decrease in O2 sat likely due to decreased respiratory drive from Dilauidid. Will have patient up and walk today. machine overhauler to LR from NS with continued rate of 250mL/hr. November 12, 2019 the morning of rounds her pain was vastly improved with improving pancreatic indices, he had no fever, Glucose 76, calcium 7.8--minimally corrects, No signs of pancreatic ascites, Improving leukocytosis, no fever, no signs of systemic bacteremia, suspect pleural effusions transudative 2/2 inflammation, was considered low risk for stress ulcer bleeding, she stated she was hungry, using ICS therefore attempted to advance her diet however she ate some oatmeal and had abdominal pain returning. Her lipase trended down significantly less than 1500 upon discharge she was placed back on n.p.o. IV fluids continued. Closely monitored for for signs of endocrine insufficiency--twice daily Accu-Cheks were on concerning. Her Dilaudid was switched to hydrocodone. She was given Toradol which seemed to improve her pain quite a bit. Reattempts to initiate advance diet was successful however it appeared chicken noodle soup and tomato soup she was able to tolerate the best. Ciprofloxacin 400 mg IV twice daily for 3 days were given. Her Vyvanse was held. Ambulated aggressively she used her incentive spirometer and had over 2500 cc upon discharge on her ICS. She was weaned off oxygen. Patient was deemed ready for discharge due to her improving pain and hydration. She refused to stay any longer. Vital signs upon discharge Temp 97.6, BP 113/83, RR 16 O2 sats 96% Medications upon discharge Hydrocodone 5/325 1 p.o. every 4-6 hours as needed for pain. #30. No refills. Restart Vyvanse Disposition Patient was discharged with close follow-up, she was given instructions on to slowly advance her diet and to report any diet failure, any increase in abdominal pain vomiting or fever. - General Info Functional Status: Reports: Pain Controlled, Tolerating Diet, Incentive Spirometry - Review of Systems General: Reports: No Symptoms HEENT: Reports: No Symptoms Pulmonary: Reports: No Symptoms Cardiovascular: Reports: No Symptoms Gastrointestinal: Denies: Abdominal Pain, Decreased Appetite Genitourinary: Reports: No Symptoms Musculoskeletal: Reports: No Symptoms Skin: Reports: No Symptoms Psychiatric: Reports: No Symptoms - Patient Data Vitals - Most Recent: Last Vital Signs Temp 97.6 F 11/13/19 12:29 Pulse 92 11/13/19 12:29 Resp 16 11/13/19 12:29 BP 113/83 11/13/19 12:29 Pulse Ox 96 11/13/19 12:29 Weight - Most Recent: 144 lb 9.6 oz Lab Results - Last 24 hrs: Laboratory Results - last 24 hr 11/13/19 Range/Units 07:43 POC Glucose 75 (74-106) mg/dl [place] Results - Last 24 hrs: Microbiology 11/10/19 05:15 Aerobic Blood Culture - Preliminary Blood - Venous - Lab Draw NO GROWTH AFTER 4 DAYS Anaerobic Blood Culture - Final 11/10/19 05:00 Aerobic Blood Culture - Preliminary Blood - Arm, Right NO GROWTH AFTER 4 DAYS Anaerobic Blood Culture - Preliminary NO GROWTH AFTER 4 DAYS Med Orders - Current: Current Medications Discontinued Medications Hydrocodone Bitart/Acetaminophen ([place] 325-5 Mg) 1 tab PO Q4H PRN PRN Reason: Breakthrough Pain Last Admin: 11/13/19 05:18 Dose: 1 tab Documented by: Hydromorphone HCl (Dilaudid) 1 mg IVPUSH ONETIME ONE Stop: 11/10/19 00:10 Last Admin: 11/10/19 00:11 Dose: 0.5 mg Documented by: Hydromorphone HCl (Dilaudid) 0.5 mg IVPUSH ONETIME ONE Stop: 11/10/19 02:14 Last Admin: 11/10/19 02:18 Dose: 0.5 mg Documented by: Hydromorphone HCl (Dilaudid) 0.5 mg IVPUSH Q2H PRN PRN Reason: Abdominal Pain Last Admin: 11/12/19 10:58 Dose: 0.5 mg Documented by: Hydromorphone HCl (Dilaudid) 0.5 mg IVPUSH ONETIME ONE Stop: 11/10/19 18:23 Last Admin: 11/10/19 23:31 Dose: Not Given Documented by: Sodium Chloride (Normal Saline) 1,000 mls @ 999 mls/hr IV .BOLUS ONE Stop: 11/10/19 02:41 Last Admin: 11/10/19 01:45 Dose: 999 mls/hr Documented by: Sodium Chloride (Normal Saline) Confirm Administered Dose 1,000 mls @ as directed .ROUTE .STK-MED ONE Stop: 11/10/19 01:41 Last Admin: 11/10/19 01:44 Dose: Not Given Documented by: Sodium Chloride (Normal Saline) 1,000 mls @ 999 mls/hr IV .BOLUS ONE Stop: 11/10/19 04:20 Last Admin: 11/10/19 03:35 Dose: 999 mls/hr Documented by: Sodium Chloride (Normal Saline) 1,000 mls @ 250 mls/hr IV ASDIRECTED [facility] Last Admin: 11/11/19 09:27 Dose: 250 mls/hr Documented by: Ciprofloxacin/Dextrose 400 mg/ (Premix) 200 mls @ 200 mls/hr IV Q12H [facility] Ciprofloxacin/Dextrose 400 mg/ (Premix) 200 mls @ 200 mls/hr IV Q12H [facility] Last Admin: 11/13/19 05:07 Dose: 200 mls/hr Documented by: Lactated Ringer's (Ringers, Lactated) 1,000 mls @ 150 mls/hr IV ASDIRECTED [facility] Last Admin: 11/13/19 00:55 Dose: 150 mls/hr Documented by: Ketorolac Tromethamine (Toradol) 30 mg IVPUSH Q6H [facility] Stop: 11/17/19 10:07 Last Admin: 11/13/19 11:03 Dose: 30 mg Documented by: Ondansetron HCl (Zofran) Confirm Administered Dose 4 mg .ROUTE .STK-MED ONE Stop: 11/10/19 00:02 Last Admin: 11/10/19 00:07 Dose: Not Given Documented by: Ondansetron HCl (Zofran) 4 mg IVPUSH ONETIME ONE Stop: 11/10/19 00:06 Last Admin: 11/10/19 00:07 Dose: 4 mg Documented by: Ondansetron HCl (Zofran Odt) 8 mg PO Q6H PRN PRN Reason: Nausea/Vomiting Ondansetron HCl (Zofran) 4 mg IVPUSH Q4H PRN PRN Reason: Nausea/Vomiting Last Admin: 11/11/19 04:30 Dose: 4 mg Documented by: Ondansetron HCl (Zofran) 4 mg IVPUSH ONETIME ONE Stop: 11/10/19 18:22 Last Admin: 11/10/19 23:30 Dose: Not Given Documented by: Sodium Chloride (Saline Flush) 10 ml FLUSH Q8HR PRN PRN Reason: keep vein open Last Admin: 11/12/19 10:27 Dose: 10 ml Documented by: - Exam Quality Assessment: Denies: Supplemental Oxygen (She was weaned off) General: Reports: Alert, Oriented, Cooperative, No Acute Distress Lungs: Reports: Clear to Auscultation, Normal Respiratory Effort Cardiovascular: Reports: Regular Rate, Regular Rhythm GI/Abdominal Exam: Normal Bowel Sounds, Soft, Non-Tender (Female) Exam: Deferred Back Exam: Denies: CVA Tenderness (L), CVA Tenderness (R) Extremities: No: Pedal Edema Skin: Reports: Warm, Dry, Intact Psy/Mental Status: Reports: Alert, Normal Affect, Normal Mood
== END 2019-11-13 12:23 | disposition home or self-care (01) | DRG 282 ==
LOC: KA.ED 23:40 → KA.MS 11-10 03:25 → UNDOADMIN 11-10 03:26
PROVIDERS: ADMIT Nurse Practitioner Family; ATTEND Family Medicine
DX: K85.90 Acute pancreatitis without necrosis or infection, unspecified (principal); F90.9 Attention-deficit hyperactivity disorder, unspecified type; D64.9 Anemia, unspecified; Z20.828 Contact with and (suspected) exposure to other viral communicable diseases; J91.8 Pleural effusion in other conditions classified elsewhere; K59.09 Other constipation; Z87.442 Personal history of urinary calculi; Z90.49 Acquired absence of other specified parts of digestive tract
CPT/HCPCS: 36415; 71045; 74177; 80048; 80053; 80076; 82962; 83605; 83690; 83735; 85025; 85027; 86140; 87040; 96361; 96374; 96375; 96376; 99284; 99285-25; A9270-GY; J0744; J1170; J1885; J2405; J7030; J7120; U0002